=== PATIENT | male | born 1945 | race Caucasian/White ===

== ENCOUNTER 2016-12-26 12:50 | Inpatient (IN) | payer MEDICARE, OTHER ==
[~2016-12-26] VITALS: Ht 172.7 cm; Wt 94.8 kg
[2016-12-26 13:01] LABS: GLUCOSE,POINT OF CARE 348 MG/DL (70-110)
[2016-12-26] MEDS ORDERED: HUMLIS7525 SQ ×2 (13:08)
[2016-12-26] MEDS ORDERED: TAMS0.4C32 PO (13:08)
[2016-12-26] MEDS ORDERED: AMLO-511 PO (13:08)
[2016-12-26] MEDS ORDERED: METF500T4 PO (13:08)
[2016-12-26] MEDS ORDERED: ONDANSETRON HCL 4 MG/2 ML VIAL IVP ONE (13:30)
[2016-12-26] MEDS ORDERED: ACETAMINOPHEN 1000 MG/ISO-OSM 100 ML IV ONE (13:30)
[2016-12-26 13:40] LABS: HEMATOCRIT 39.9 % (41-53); HEMOGLOBIN 13.4 g/dL (13.5-17.5); MEAN CORPUSCULAR HEMOGLOBIN 29.7 pg (26.0-34.0); MEAN CORPUSCULAR HGB CONC 33.7 G/dL (31.0-37.0); MEAN CORPUSCULAR VOLUME 88 fL (80-100); PLATELET COUNT (AUTO) 156 K/uL (150-450); RED BLOOD CELL COUNT(AUTO) 4.52 MIL/uL (4.50-5.90); RED CELL DISTRIBUTION WIDTH 13.6 % (11.5-14.5); WHITE BLOOD COUNT (AUTO) 21.5 K/uL (4.5-11.0)
[2016-12-26 13:54] LABS: ANION GAP 17 mmol/L (8-16); CARBON DIOXIDE 21 mmol/L (22-29); CHLORIDE 93 mmol/L (98-107); CREATININE 1.63 mg/dL (0.60-1.30); GLOMERULAR FILTR. RATE CALC 42 mL/min (>60); POTASSIUM 3.7 mmol/L (3.5-5.1); SODIUM SERUM 131 mmol/L (136-145); UREA NITROGEN, BLOOD 30 mg/dL (7-18)
[2016-12-26 13:55] LABS: CALCIUM, TOTAL 8.4 mg/dL (8.8-10.5)
[2016-12-26 14:07] LABS: BAND NEUTROPHILS % (MANUAL) 6 % (1-5); LYMPHOCYTES % (MANUAL) 3 % (22-44); TOTAL CELLS COUNTED 100
[2016-12-26 14:12] LABS: B-TYPE NATRIURETIC PEPTIDE 591 pg/mL (0-100)
[2016-12-26 14:17] LABS: ALANINE AMINOTRANSFERASE 26 U/L (12-78); ALBUMIN 2.9 g/dL (3.4-5.0); ASPARTATE AMINOTRANSFERASE 25 U/L (15-37); BILIRUBIN,TOTAL 0.8 mg/dL (0.1-1.0); CREATINE KINASE MB 2.9 ng/mL (0-5); CREATINE KINASE, TOTAL 610 U/L (39-308); TOTAL PROTEIN, SERUM 7.6 g/dL (6.4-8.2)
[2016-12-26] MEDS ORDERED: FUROSEMIDE 40 MG/4 ML VIAL IVP ONE (14:30)
[2016-12-26 14:45] LABS: GLUCOSE, URINE (UA) >=1000 mg/dL (NEGATIVE); KETONES,URINE TRACE mg/dL (NEGATIVE); LEUKOCYTE ESTERASE ,URINE NEGATIVE (NEGATIVE); PH,URINE 5.5 (5.0-8.0); PROTEIN,URINE SEE CONFIRM (NEGATIVE)
[2016-12-26 14:49] LABS: OCCULT BLOOD,URINE SMALL (NEGATIVE)
[2016-12-26 14:50] LABS: ADD UA MICROSCOPIC YES; APPEARANCE,URINE HAZY (CLEAR); SULFOSALICYLIC ACID,URINE 1+ (Negative); WBC,URINE 0-2 /HPF (0-5)
[2016-12-26 15:42] LABS: GLUCOSE COMMENT 1 Doctor Notified; GLUCOSE,POINT OF CARE 355 MG/DL (70-110)
[2016-12-26] MEDS ORDERED: INSULIN REGULAR, HUMAN 100 UNITS/ML IVP ONE (16:00)
[2016-12-26] MEDS ORDERED: ACETAMINOPHEN 325 MG TABLET PO PRN (16:15)
[2016-12-26 16:47] LABS: GLUCOSE,POINT OF CARE 348 MG/DL (70-110)
[2016-12-26 17:13] VITALS: BP 153/70
[2016-12-26] MEDS ORDERED: ZOLPIDEM TARTRATE 10 MG TABLET PO PRN (18:30)
[2016-12-26] MEDS ORDERED: DEXTROSE 50%-WATER 25 GM/50 ML SYRINGE IVP PRN (18:30)
[2016-12-26] MEDS ORDERED: ONDANSETRON HCL 4 MG/2 ML VIAL IVP PRN (18:30)
[2016-12-26] MEDS ORDERED: ALBUTEROL SULFATE 2.5 MG/0.5 ML NEB SOLUTION NEB PRN (18:30)
[2016-12-26] MEDS: INSULIN ASPART 100 UNITS/ML SQ PRN ×2 (18:59→20:48)
[2016-12-26 19:30] VITALS: BP 144/52
[2016-12-26] MEDS: ALBUTEROL SULFATE 2.5 MG/0.5 ML NEB SOLUTION NEB SCH (20:00)
[2016-12-26] MEDS: LEVOFLOXACIN 500 MG/D5% WATER 100 ML IV SCH (20:32)
[2016-12-26] MEDS ORDERED: SODIUM CHLORIDE 0.9% 250 ML IV ONE (21:02)
[2016-12-26] MEDS: ACETAMINOPHEN 325 MG TABLET PO PRN (23:26)
[2016-12-26 23:57] VITALS: BP 133/65
[2016-12-27] MEDS: MetroNIDAZOLE 750 MG/NACL 150 ML IV SCH ×2 (00:34→08:24)
[2016-12-27] MEDS: HEPARIN SODIUM,PORCINE 5,000 UNITS/ML VIAL SQ SCH ×2 (00:34→08:25)
[2016-12-27 00:37] LABS: GLUCOSE COMMENT 1 Received Meds; GLUCOSE,POINT OF CARE 342 MG/DL (70-110)
[2016-12-27] MEDS ORDERED: 0.9% SODIUM CHLORIDE 10 ML SYRINGE IVP PRN (01:00)
[2016-12-27] MEDS ORDERED: 0.9% SODIUM CHLORIDE 5 ML NEB SOLUTION NEB ONE ×4 (02:29→19:38)
[2016-12-27] MEDS: ALBUTEROL SULFATE 2.5 MG/0.5 ML NEB SOLUTION NEB SCH ×4 (02:42→20:46)
[2016-12-27] MEDS ORDERED: DIGOXIN 250 MCG/ML 2 ML AMP IVP ONE (04:45)
[2016-12-27 04:56] VITALS: BP 143/62
[2016-12-27] MEDS: INSULIN ASPART 100 UNITS/ML SQ PRN ×3 (05:46→20:33)
[2016-12-27 06:33] LABS: HEMATOCRIT 34.6 % (41-53); HEMOGLOBIN 11.6 g/dL (13.5-17.5); MEAN CORPUSCULAR HEMOGLOBIN 30.1 pg (26.0-34.0); MEAN CORPUSCULAR HGB CONC 33.6 G/dL (31.0-37.0); MEAN CORPUSCULAR VOLUME 90 fL (80-100); PLATELET COUNT (AUTO) 140 K/uL (150-450); RED BLOOD CELL COUNT(AUTO) 3.86 MIL/uL (4.50-5.90); RED CELL DISTRIBUTION WIDTH 13.8 % (11.5-14.5); WHITE BLOOD COUNT (AUTO) 21.4 K/uL (4.5-11.0)
[2016-12-27 06:38] LABS: ALANINE AMINOTRANSFERASE 20 U/L (12-78); ALBUMIN 2.3 g/dL (3.4-5.0); ANION GAP 13 mmol/L (8-16); ASPARTATE AMINOTRANSFERASE 24 U/L (15-37); BILIRUBIN,TOTAL 0.6 mg/dL (0.1-1.0); CARBON DIOXIDE 23 mmol/L (22-29); CHLORIDE 98 mmol/L (98-107); CREATININE 1.51 mg/dL (0.60-1.30); GLOMERULAR FILTR. RATE CALC 46 mL/min (>60); POTASSIUM 3.6 mmol/L (3.5-5.1); SODIUM SERUM 134 mmol/L (136-145); TOTAL PROTEIN, SERUM 6.4 g/dL (6.4-8.2); UREA NITROGEN, BLOOD 37 mg/dL (7-18)
[2016-12-27 06:48] LABS: HEMOGLOBIN A1C 8.9 % (4.5-6.2)
[2016-12-27] MEDS ORDERED: MetFORMIN HCL 500 MG TABLET PO SCH (08:00)
[2016-12-27 08:07] VITALS: BP 134/70
[2016-12-27] MEDS: AmLODIPine BESYLATE 5 MG TABLET PO SCH (08:24)
[2016-12-27] MEDS: MORPHINE SULFATE 2 MG/ML SYRINGE IVP PRN (08:25)
[2016-12-27] MEDS: TAMSULOSIN HCL 0.4 MG CAPSULE PO SCH (08:25)
[2016-12-27] MEDS: PANTOPRAZOLE SODIUM 40 MG/VIAL IVP SCH (08:25)
[2016-12-27 08:30] LABS: BAND NEUTROPHILS % (MANUAL) 18 % (1-5); EOSINOPHILS % (MANUAL) 1 % (1-6); LYMPHOCYTES % (MANUAL) 4 % (22-44); TOTAL CELLS COUNTED 100
[2016-12-27 08:31] LABS: METAMYELOCYTES % 2 % (0-0); WBC MORPHOLOGY TOXIC GRANULATION
[2016-12-27 11:16] VITALS: BP 120/64
[2016-12-27 13:22] LABS: GLUCOSE COMMENT 1 Received Meds; GLUCOSE,POINT OF CARE 331 MG/DL (70-110)
[2016-12-27 13:22] LABS: GLUCOSE COMMENT 1 Received Meds; GLUCOSE,POINT OF CARE 306 MG/DL (70-110)
[2016-12-27] MEDS ORDERED: HEPARIN SODIUM,PORCINE 5,000 UNITS/ML VIAL IVP PRN ×2 (14:15)
[2016-12-27] MEDS ORDERED: HEPARIN SODIUM,PORCINE 5,000 UNITS/ML VIAL IVP ONE (14:15)
[2016-12-27] MEDS ORDERED: VANCOMYCIN HCL 1.5 GM in DEXTROSE 5%-WATER 250 ML IV ONE (15:00)
[2016-12-27 15:16] LABS: HEMATOCRIT 35.4 % (41-53); HEMOGLOBIN 11.8 g/dL (13.5-17.5); MEAN CORPUSCULAR HEMOGLOBIN 29.7 pg (26.0-34.0); MEAN CORPUSCULAR HGB CONC 33.3 G/dL (31.0-37.0); MEAN CORPUSCULAR VOLUME 89 fL (80-100); PLATELET COUNT (AUTO) 143 K/uL (150-450); RED BLOOD CELL COUNT(AUTO) 3.96 MIL/uL (4.50-5.90); RED CELL DISTRIBUTION WIDTH 14.1 % (11.5-14.5); WHITE BLOOD COUNT (AUTO) 18.6 K/uL (4.5-11.0)
[2016-12-27 15:34] LABS: INR 1.1 (0.9-1.1); PROTHROMBIN TIME 11.6 SEC (9.4-11.6)
[2016-12-27 15:41] VITALS: BP 120/54
[2016-12-27] MEDS: DILTIAZEM HCL 125 MG in DEXTROSE 5%-WATER 100 ML IV SCH (16:00)
[2016-12-27 16:22] LABS: BAND NEUTROPHILS % (MANUAL) 8 % (1-5); LYMPHOCYTES % (MANUAL) 5 % (22-44); TOTAL CELLS COUNTED 100; WBC MORPHOLOGY TOXIC GRANULATION
[2016-12-27] MEDS: HEPARIN SODIUM 25000 UNITS/D5W 250 ML IV PRN (17:54)
[2016-12-27] MEDS: GlipiZIDE 5 MG TABLET PO SCH (18:09)
[2016-12-27] MEDS ORDERED: INSULIN ASPART 100 UNITS/ML SQ ONE (18:15)
[2016-12-27 20:00] VITALS: BP 132/66
[2016-12-27] MEDS: LEVOFLOXACIN 500 MG/D5% WATER 100 ML IV SCH (20:30)
[2016-12-27] MEDS ORDERED: INSULIN DETEMIR 100 UNITS/ML SQ SCH (21:00)
[2016-12-27 23:21] LABS: GLUCOSE COMMENT 1 Received Meds; GLUCOSE,POINT OF CARE 447 MG/DL (70-110)
[2016-12-27 23:53] VITALS: BP 133/60
[2016-12-28] MEDS ORDERED: 0.9% SODIUM CHLORIDE 5 ML NEB SOLUTION NEB ONE ×4 (02:32→19:56)
[2016-12-28] MEDS: ALBUTEROL SULFATE 2.5 MG/0.5 ML NEB SOLUTION NEB SCH ×4 (02:42→20:01)
[2016-12-28] MEDS: HEPARIN SODIUM 25000 UNITS/D5W 250 ML IV PRN (03:22)
[2016-12-28 04:21] VITALS: BP 105/57
[2016-12-28 05:08] LABS: EOSINOPHILS % (AUTO) 0 % (1.0-6.0); HEMATOCRIT 24.8 % (41-53); HEMOGLOBIN 8.2 g/dL (13.5-17.5); LYMPHOCYTES # (AUTO) 0.9 K/uL (1.0-4.8); LYMPHOCYTES % (AUTO) 3.8 % (22.0-44.0); MEAN CORPUSCULAR HEMOGLOBIN 29.4 pg (26.0-34.0); MEAN CORPUSCULAR VOLUME 89 fL (80-100); MONOCYTES # (AUTO) 1.6 K/uL (0.1-1.0); MONOCYTES % (AUTO) 7.2 % (2.0-9.0); NEUTROPHILS # (AUTO) 20.2 K/uL (1.8-7.7); PLATELET COUNT (AUTO) 144 K/uL (150-450); RED BLOOD CELL COUNT(AUTO) 2.78 MIL/uL (4.50-5.90); RED CELL DISTRIBUTION WIDTH 14.3 % (11.5-14.5); WHITE BLOOD COUNT (AUTO) 22.7 K/uL (4.5-11.0)
[2016-12-28 05:18] LABS: CALCIUM, TOTAL 7.2 mg/dL (8.8-10.5); CREATININE 2.61 mg/dL (0.60-1.30); POTASSIUM 4.6 mmol/L (3.5-5.1)
[2016-12-28] MEDS: GlipiZIDE 5 MG TABLET PO SCH ×2 (05:23→18:02)
[2016-12-28] MEDS: INSULIN ASPART 100 UNITS/ML SQ PRN ×4 (05:24→21:08)
[2016-12-28 05:33] LABS: PROSTATE SPECIFIC ANTIGEN 86.55 ng/mL (0.00-4.00)
[2016-12-28] MEDS ORDERED: DEXTROSE 50%-WATER 25 GM/50 ML SYRINGE IVP PRN (05:45)
[2016-12-28 07:57] LABS: RBC MORPHOLOGY COMMENT NORMAL RBC MORPH
[2016-12-28 07:59] VITALS: BP 127/58
[2016-12-28] MEDS ORDERED: SODIUM CHLORIDE 0.9% 250 ML IV ONE (08:16)
[2016-12-28] MEDS: VANCOMYCIN HCL 1.5 GM in DEXTROSE 5%-WATER 250 ML IV SCH (08:18)
[2016-12-28] MEDS: AmLODIPine BESYLATE 5 MG TABLET PO SCH (08:18)
[2016-12-28] MEDS: PANTOPRAZOLE SODIUM 40 MG/VIAL IVP SCH (08:18)
[2016-12-28] MEDS: TAMSULOSIN HCL 0.4 MG CAPSULE PO SCH ×2 (08:19→21:07)
[2016-12-28 11:28] VITALS: BP 116/59
[2016-12-28] MEDS: DILTIAZEM HCL 125 MG in DEXTROSE 5%-WATER 100 ML IV SCH (11:56)
[2016-12-28 11:59] LABS: BASOPHILS % (AUTO) 0.1 % (0.0-2.0); EOSINOPHILS % (AUTO) 0 % (1.0-6.0); HEMATOCRIT 23.7 % (41-53); HEMOGLOBIN 7.9 g/dL (13.5-17.5); LYMPHOCYTES # (AUTO) 1.1 K/uL (1.0-4.8); LYMPHOCYTES % (AUTO) 5.4 % (22.0-44.0); MEAN CORPUSCULAR HEMOGLOBIN 30.2 pg (26.0-34.0); MEAN CORPUSCULAR HGB CONC 33.5 G/dL (31.0-37.0); MEAN CORPUSCULAR VOLUME 90 fL (80-100); MONOCYTES # (AUTO) 1.3 K/uL (0.1-1.0); MONOCYTES % (AUTO) 6.2 % (2.0-9.0); NEUTROPHILS # (AUTO) 18.2 K/uL (1.8-7.7); PLATELET COUNT (AUTO) 130 K/uL (150-450); RED BLOOD CELL COUNT(AUTO) 2.63 MIL/uL (4.50-5.90); RED CELL DISTRIBUTION WIDTH 13.9 % (11.5-14.5); WHITE BLOOD COUNT (AUTO) 20.6 K/uL (4.5-11.0)
[2016-12-28] MEDS: INSULIN DETEMIR 100 UNITS/ML SQ SCH ×2 (12:03→21:08)
[2016-12-28 12:05] LABS: NEUTROPHILS % (AUTO) 88.3 % (40.0-70.0)
[2016-12-28] MEDS: PANTOPRAZOLE SODIUM 80 MG in SODIUM CHLORIDE 0.9% 500 ML IV SCH ×2 (15:04→22:17)
[2016-12-28 16:08] VITALS: BP 114/62
[2016-12-28] MEDS: OCTREOTIDE ACETATE 500 MCG in DEXTROSE 5%-WATER 97.5 ML IV SCH (17:59)
[2016-12-28] MEDS: SODIUM CHLORIDE 0.9% 1,000 ML IV SCH (18:02)
[2016-12-28 19:23] VITALS: BP 128/64
[2016-12-28] MEDS: LEVOFLOXACIN 500 MG/D5% WATER 100 ML IV SCH (20:53)
[2016-12-28 23:20] VITALS: BP 117/62
[2016-12-28] MEDS: ACETAMINOPHEN 325 MG TABLET PO PRN (23:31)
[2016-12-29] VITALS (17 sets, daily range): BP systolic 96–150; BP diastolic 50–90
[2016-12-29] MEDS ORDERED: PROPOFOL 1% 20 ML VIAL IVP ONE (00:32)
[2016-12-29] MEDS: OCTREOTIDE ACETATE 500 MCG in DEXTROSE 5%-WATER 97.5 ML IV SCH (02:10)
[2016-12-29] MEDS ORDERED: 0.9% SODIUM CHLORIDE 5 ML NEB SOLUTION NEB ONE ×4 (02:20→20:14)
[2016-12-29 02:21] LABS: GLUCOSE COMMENT 1 Doctor Notified; GLUCOSE,POINT OF CARE 405 MG/DL (70-110)
[2016-12-29] MEDS: ALBUTEROL SULFATE 2.5 MG/0.5 ML NEB SOLUTION NEB SCH ×4 (02:28→20:18)
[2016-12-29] MEDS: SODIUM CHLORIDE 0.9% 1,000 ML IV SCH ×2 (03:48→16:43)
[2016-12-29] MEDS: DILTIAZEM HCL 125 MG in DEXTROSE 5%-WATER 100 ML IV SCH (03:52)
[2016-12-29] MEDS ORDERED: SODIUM CHLORIDE 0.9% 1,000 ML IV ONE ×2 (06:14→06:15)
[2016-12-29 07:30] LABS: ORIG DRAW (USER) MSIMS
[2016-12-29 07:32] LABS: EOSINOPHILS % (AUTO) 0.2 % (1.0-6.0); HEMATOCRIT 21.9 % (41-53); HEMOGLOBIN 7.3 g/dL (13.5-17.5); LYMPHOCYTES # (AUTO) 1.1 K/uL (1.0-4.8); LYMPHOCYTES % (AUTO) 5.6 % (22.0-44.0); MEAN CORPUSCULAR HEMOGLOBIN 29.7 pg (26.0-34.0); MEAN CORPUSCULAR HGB CONC 33.3 G/dL (31.0-37.0); MEAN CORPUSCULAR VOLUME 89 fL (80-100); MONOCYTES # (AUTO) 1.6 K/uL (0.1-1.0); NEUTROPHILS # (AUTO) 17.5 K/uL (1.8-7.7); PLATELET COUNT (AUTO) 144 K/uL (150-450); RED BLOOD CELL COUNT(AUTO) 2.45 MIL/uL (4.50-5.90); RED CELL DISTRIBUTION WIDTH 14.4 % (11.5-14.5); WHITE BLOOD COUNT (AUTO) 20.4 K/uL (4.5-11.0)
[2016-12-29 07:32] LABS: CALCIUM, TOTAL 7.1 mg/dL (8.8-10.5); CREATININE 1.44 mg/dL (0.60-1.30); MAGNESIUM 2.4 mg/dL (1.80-2.40); PHOSPHORUS 3.3 mg/dL (2.5-4.9); POTASSIUM 4.1 mmol/L (3.5-5.1)
[2016-12-29 07:38] LABS: NEUTROPHILS % (AUTO) 86.2 % (40.0-70.0)
[2016-12-29] MEDS: GlipiZIDE 5 MG TABLET PO SCH ×2 (07:45→17:30)
[2016-12-29] MEDS: INSULIN DETEMIR 100 UNITS/ML SQ SCH ×2 (09:00→20:53)
[2016-12-29] MEDS: AmLODIPine BESYLATE 5 MG TABLET PO SCH (09:16)
[2016-12-29] MEDS: TAMSULOSIN HCL 0.4 MG CAPSULE PO SCH ×2 (09:17→20:52)
[2016-12-29] MEDS: SUCRALFATE 1 GM/10 ML SUSPENSION UDCUP PO SCH ×4 (09:17→20:51)
[2016-12-29] MEDS: VANCOMYCIN HCL 1.5 GM in DEXTROSE 5%-WATER 250 ML IV SCH (09:19)
[2016-12-29] MEDS: PANTOPRAZOLE SODIUM 80 MG in SODIUM CHLORIDE 0.9% 500 ML IV SCH ×2 (09:19→18:52)
[2016-12-29] MEDS: MORPHINE SULFATE 2 MG/ML SYRINGE IVP PRN (12:10)
[2016-12-29] MEDS: INSULIN ASPART 100 UNITS/ML SQ PRN ×3 (12:11→20:56)
[2016-12-29] MEDS: CLINDAMYCIN 300 MG/D5% WATER 50 ML IV SCH ×2 (16:43→22:06)
[2016-12-29] MEDS ORDERED: DEXTROSE 50%-WATER 25 GM/50 ML SYRINGE IVP PRN (18:00)
[2016-12-29] MEDS ORDERED: SODIUM CHLORIDE 0.9% 500 ML IV ONE (18:11)
[2016-12-29] MEDS: VANCOMYCIN HCL 1 GM/D5% WATER 200 ML IV SCH (20:20)
[2016-12-29] MEDS ORDERED: METOPROLOL TARTRATE 25 MG TABLET PO SCH (21:00)
[2016-12-29] MEDS ORDERED: SODIUM CHLORIDE 0.9% 250 ML IV ONE (21:44)
[2016-12-29] MEDS: LEVOFLOXACIN 500 MG/D5% WATER 100 ML IV SCH (22:07)
[2016-12-30] MEDS ORDERED: LIDOCAINE HCL/PF 2% 5 ML VIAL IM ONE (00:48)
[2016-12-30] MEDS ORDERED: FentaNYL CITRATE-PF 100 MCG/2 ML VIAL IVP ONE (00:48)
[2016-12-30] MEDS ORDERED: MORPHINE SULFATE/PF 0.5 MG/ML 10 ML AMP IVP ONE (00:48)
[2016-12-30] MEDS ORDERED: ONDANSETRON HCL 4 MG/2 ML VIAL IVP ONE (00:48)
[2016-12-30] MEDS ORDERED: PROPOFOL 1% 20 ML VIAL IVP ONE (00:48)
[2016-12-30] MEDS ORDERED: MORPHINE SULFATE 4 MG/ML SYRINGE IVP ONE (00:48)
[2016-12-30] MEDS ORDERED: SUCCINYLCHOLINE CHLORIDE 20 MG/ML 10 ML VIAL IVP ONE (00:48)
[2016-12-30] MEDS ORDERED: METOCLOPRAMIDE HCL 5 MG/ML 2 ML VIAL IVP ONE (00:48)
[2016-12-30] MEDS ORDERED: 0.9% SODIUM CHLORIDE 5 ML NEB SOLUTION NEB ONE ×3 (01:33→18:56)
[2016-12-30] MEDS: ALBUTEROL SULFATE 2.5 MG/0.5 ML NEB SOLUTION NEB SCH ×4 (01:33→19:27)
[2016-12-30] MEDS: PANTOPRAZOLE SODIUM 80 MG in SODIUM CHLORIDE 0.9% 500 ML IV SCH ×2 (01:52→17:22)
[2016-12-30] MEDS: CLINDAMYCIN 300 MG/D5% WATER 50 ML IV SCH ×4 (01:53→21:00)
[2016-12-30] MEDS: SODIUM CHLORIDE 0.9% 1,000 ML IV SCH ×3 (01:53→22:11)
[2016-12-30 04:00] VITALS: BP 144/70
[2016-12-30] MEDS: GlipiZIDE 5 MG TABLET PO SCH ×3 (05:53→17:22)
[2016-12-30] MEDS: INSULIN ASPART 100 UNITS/ML SQ PRN ×2 (05:54→17:25)
[2016-12-30 07:33] LABS: BASOPHILS % (AUTO) 0.3 % (0.0-2.0); EOSINOPHILS % (AUTO) 0.5 % (1.0-6.0); HEMATOCRIT 26.9 % (41-53); MEAN CORPUSCULAR HEMOGLOBIN 29.7 pg (26.0-34.0); MEAN CORPUSCULAR HGB CONC 33.6 G/dL (31.0-37.0); MEAN CORPUSCULAR VOLUME 88 fL (80-100); MONOCYTES # (AUTO) 1.6 K/uL (0.1-1.0); PLATELET COUNT (AUTO) 164 K/uL (150-450); RED BLOOD CELL COUNT(AUTO) 3.05 MIL/uL (4.50-5.90); RED CELL DISTRIBUTION WIDTH 14.2 % (11.5-14.5); WHITE BLOOD COUNT (AUTO) 25.8 K/uL (4.5-11.0)
[2016-12-30 07:36] LABS: NEUTROPHILS % (AUTO) 89.2 % (40.0-70.0)
[2016-12-30 07:45] VITALS: BP 156/85
[2016-12-30 07:47] LABS: ANION GAP 11 mmol/L (8-16); CALCIUM, TOTAL 7.1 mg/dL (8.8-10.5); CARBON DIOXIDE 21 mmol/L (22-29); CHLORIDE 103 mmol/L (98-107); CREATININE 1.17 mg/dL (0.60-1.30); GLOMERULAR FILTR. RATE CALC > 60 mL/min (>60); PHOSPHORUS 2.4 mg/dL (2.5-4.9); POTASSIUM 4.3 mmol/L (3.5-5.1); SODIUM SERUM 135 mmol/L (136-145); UREA NITROGEN, BLOOD 30 mg/dL (7-18)
[2016-12-30 08:02] LABS: GLUCOSE COMMENT 1 FASTING; GLUCOSE,POINT OF CARE 348 MG/DL (70-110)
[2016-12-30 08:02] LABS: GLUCOSE COMMENT 1 FASTING; GLUCOSE,POINT OF CARE 385 MG/DL (70-110)
[2016-12-30] MEDS ORDERED: BACITRACIN 50,000 UNITS/VIAL ONE (08:02)
[2016-12-30] MEDS ORDERED: BUPIVACAINE HCL/PF 0.25% 30 ML VIAL ONE (08:02)
[2016-12-30] MEDS ORDERED: SODIUM CL IRRIG SOLN BAG 3,000 ML IRRIG ONE (08:02)
[2016-12-30] MEDS ORDERED: SODIUM CHLORIDE 0.9% 10 ML ONE (08:02)
[2016-12-30] MEDS ORDERED: LIDOCAINE HCL/PF 1% 30 ML VIAL ONE (08:02)
[2016-12-30] MEDS ORDERED: SODIUM CHLORIDE 0.9% 1,000 ML IV ONE (08:28)
[2016-12-30] MEDS: INSULIN DETEMIR 100 UNITS/ML SQ SCH ×2 (08:42→22:16)
[2016-12-30] MEDS ORDERED: FentaNYL CITRATE-PF 100 MCG/2 ML VIAL IVP PRN (08:45)
[2016-12-30] MEDS ORDERED: HYDROmorphone 2 MG/ML SYRINGE IVP PRN (08:45)
[2016-12-30] MEDS ORDERED: MEPERIDINE-PF 25 MG/ML SYRINGE IVP PRN (08:45)
[2016-12-30] MEDS ORDERED: OXYGEN THERAPY IH SCH (08:45)
[2016-12-30] MEDS: VANCOMYCIN HCL 1 GM/D5% WATER 200 ML IV SCH ×2 (08:50→21:45)
[2016-12-30] MEDS: METOPROLOL TARTRATE 25 MG TABLET PO SCH ×2 (09:00→22:12)
[2016-12-30] MEDS: AmLODIPine BESYLATE 5 MG TABLET PO SCH (09:00)
[2016-12-30] MEDS: TAMSULOSIN HCL 0.4 MG CAPSULE PO SCH ×2 (09:00→22:12)
[2016-12-30] MEDS: PIPERACILLIN/TAZO 3.375 GM/D5W 50 ML IV SCH ×2 (11:08→19:30)
[2016-12-30 13:15] VITALS: BP 133/72
[2016-12-30] MEDS ORDERED: SODIUM PHOS,M-BASIC-D-BASIC 20 MMOL in DEXTROSE 5%-WATER 150 ML IV ONE (13:30)
[2016-12-30 16:00] VITALS: BP 127/73
[2016-12-30] MEDS ORDERED: SODIUM CHLORIDE 0.9% 250 ML IV ONE (17:21)
[2016-12-30 20:00] VITALS: BP 141/74
[2016-12-30 23:57] LABS: GLUCOSE COMMENT 1 Received Meds; GLUCOSE,POINT OF CARE 351 MG/DL (70-110)
[2016-12-30 23:57] LABS: GLUCOSE,POINT OF CARE 316 MG/DL (70-110)
[2016-12-31] VITALS (7 sets, daily range): BP systolic 92–145; BP diastolic 59–78
[2016-12-31] MEDS: INSULIN ASPART 100 UNITS/ML SQ PRN ×5 (01:56→21:07)
[2016-12-31] MEDS: PIPERACILLIN/TAZO 3.375 GM/D5W 50 ML IV SCH ×4 (02:00→18:26)
[2016-12-31] MEDS ORDERED: 0.9% SODIUM CHLORIDE 5 ML NEB SOLUTION NEB ONE ×4 (02:10→20:01)
[2016-12-31] MEDS: ALBUTEROL SULFATE 2.5 MG/0.5 ML NEB SOLUTION NEB SCH ×4 (02:22→20:06)
[2016-12-31 03:22] LABS: GLUCOSE,POINT OF CARE 350 MG/DL (70-110)
[2016-12-31] MEDS: PANTOPRAZOLE SODIUM 80 MG in SODIUM CHLORIDE 0.9% 500 ML IV SCH ×3 (03:44→23:53)
[2016-12-31] MEDS: CLINDAMYCIN 300 MG/D5% WATER 50 ML IV SCH ×3 (03:45→16:38)
[2016-12-31] MEDS ORDERED: MIDAZOLAM HCL 2 MG/2 ML VIAL IVP ONE (05:13)
[2016-12-31] MEDS ORDERED: HYDROmorphone 2 MG/ML SYRINGE IVP ONE (05:13)
[2016-12-31] MEDS ORDERED: FentaNYL CITRATE-PF 100 MCG/2 ML VIAL IVP ONE (05:13)
[2016-12-31 05:34] LABS: ANION GAP 8 mmol/L (8-16); CALCIUM, TOTAL 6.8 mg/dL (8.8-10.5); CARBON DIOXIDE 23 mmol/L (22-29); CHLORIDE 104 mmol/L (98-107); GLOMERULAR FILTR. RATE CALC > 60 mL/min (>60); POTASSIUM 4.2 mmol/L (3.5-5.1); SODIUM SERUM 135 mmol/L (136-145); UREA NITROGEN, BLOOD 17 mg/dL (7-18)
[2016-12-31] MEDS: GlipiZIDE 5 MG TABLET PO SCH ×2 (06:30→18:26)
[2016-12-31 07:02] LABS: GLUCOSE,POINT OF CARE 263 MG/DL (70-110)
[2016-12-31] MEDS ORDERED: SODIUM CHLORIDE 0.9% 10 ML ONE (07:45)
[2016-12-31 07:48] LABS: BASOPHILS % (AUTO) 0.1 % (0.0-2.0); EOSINOPHILS % (AUTO) 0.4 % (1.0-6.0); HEMATOCRIT 23.6 % (41-53); HEMOGLOBIN 7.8 g/dL (13.5-17.5); LYMPHOCYTES # (AUTO) 1.7 K/uL (1.0-4.8); LYMPHOCYTES % (AUTO) 5.7 % (22.0-44.0); MEAN CORPUSCULAR HEMOGLOBIN 29.5 pg (26.0-34.0); MEAN CORPUSCULAR VOLUME 90 fL (80-100); MONOCYTES # (AUTO) 1.6 K/uL (0.1-1.0); MONOCYTES % (AUTO) 5.3 % (2.0-9.0); NEUTROPHILS # (AUTO) 25.9 K/uL (1.8-7.7); NEUTROPHILS % (AUTO) 88.5 % (40.0-70.0); PLATELET COUNT (AUTO) 192 K/uL (150-450); RED BLOOD CELL COUNT(AUTO) 2.64 MIL/uL (4.50-5.90); RED CELL DISTRIBUTION WIDTH 14.7 % (11.5-14.5); WHITE BLOOD COUNT (AUTO) 29.3 K/uL (4.5-11.0)
[2016-12-31] MEDS ORDERED: MEPERIDINE-PF 25 MG/ML SYRINGE IVP PRN (08:30)
[2016-12-31] MEDS ORDERED: HYDROmorphone 2 MG/ML SYRINGE IVP PRN (08:30)
[2016-12-31] MEDS ORDERED: FentaNYL CITRATE-PF 100 MCG/2 ML VIAL IVP PRN (08:30)
[2016-12-31] MEDS ORDERED: OXYGEN THERAPY IH SCH (08:43)
[2016-12-31 09:21] LABS: BASOPHILS % (AUTO) 0.1 % (0.0-2.0); HEMOGLOBIN 7.6 g/dL (13.5-17.5); LYMPHOCYTES # (AUTO) 1.2 K/uL (1.0-4.8); MEAN CORPUSCULAR HEMOGLOBIN 29.3 pg (26.0-34.0); MEAN CORPUSCULAR VOLUME 89 fL (80-100); MONOCYTES # (AUTO) 1.3 K/uL (0.1-1.0); MONOCYTES % (AUTO) 4.2 % (2.0-9.0); NEUTROPHILS # (AUTO) 27.4 K/uL (1.8-7.7); PLATELET COUNT (AUTO) 201 K/uL (150-450); RED BLOOD CELL COUNT(AUTO) 2.59 MIL/uL (4.50-5.90); RED CELL DISTRIBUTION WIDTH 14.3 % (11.5-14.5)
[2016-12-31 09:25] LABS: NEUTROPHILS % (AUTO) 90.7 % (40.0-70.0); WHITE BLOOD COUNT (AUTO) 30.2 K/uL (4.5-11.0)
[2016-12-31] MEDS: SODIUM CHLORIDE 0.9% 1,000 ML IV SCH ×2 (09:58→16:40)
[2016-12-31] MEDS: VANCOMYCIN HCL 1 GM/D5% WATER 200 ML IV SCH ×3 (09:58→23:53)
[2016-12-31] MEDS: TAMSULOSIN HCL 0.4 MG CAPSULE PO SCH ×2 (09:59→20:44)
[2016-12-31] MEDS: AmLODIPine BESYLATE 5 MG TABLET PO SCH (09:59)
[2016-12-31] MEDS: METOPROLOL TARTRATE 25 MG TABLET PO SCH ×2 (09:59→20:44)
[2016-12-31] MEDS: INSULIN DETEMIR 100 UNITS/ML SQ SCH ×2 (10:00→21:06)
[2016-12-31 17:37] LABS: GLUCOSE COMMENT 1 Received Meds; GLUCOSE,POINT OF CARE 231 MG/DL (70-110)
[2016-12-31] MEDS: OxyCODONE HCL/ACETAMINOPHEN 5-325 MG TABLET PO PRN (18:26)
[2016-12-31] MEDS: CLINDAMYCIN 900 MG/D5% WATER 50 ML IV SCH (21:11)
[2016-12-31] MEDS ORDERED: LEVOFLOXACIN 250 MG TABLET PO ONE (21:30)
[2017-01-01] VITALS (13 sets, daily range): BP systolic 98–136; BP diastolic 43–81
[2017-01-01] MEDS: PIPERACILLIN/TAZO 3.375 GM/D5W 50 ML IV SCH ×4 (00:17→17:47)
[2017-01-01] MEDS ORDERED: 0.9% SODIUM CHLORIDE 5 ML NEB SOLUTION NEB ONE ×4 (02:13→19:06)
[2017-01-01] MEDS: ALBUTEROL SULFATE 2.5 MG/0.5 ML NEB SOLUTION NEB SCH ×4 (02:16→19:22)
[2017-01-01] MEDS: CLINDAMYCIN 900 MG/D5% WATER 50 ML IV SCH ×3 (05:29→20:16)
[2017-01-01] MEDS: SODIUM CHLORIDE 0.9% 1,000 ML IV SCH (05:31)
[2017-01-01] MEDS: GlipiZIDE 5 MG TABLET PO SCH ×2 (05:39→17:47)
[2017-01-01] MEDS: INSULIN ASPART 100 UNITS/ML SQ PRN ×4 (05:39→20:17)
[2017-01-01] MEDS: VANCOMYCIN HCL 1 GM/D5% WATER 200 ML IV SCH ×2 (07:30→16:09)
[2017-01-01 07:32] LABS: MEAN CORPUSCULAR HEMOGLOBIN 29.9 pg (26.0-34.0); MEAN CORPUSCULAR VOLUME 90 fL (80-100); PLATELET COUNT (AUTO) 206 K/uL (150-450); RED CELL DISTRIBUTION WIDTH 14.2 % (11.5-14.5); WHITE BLOOD COUNT (AUTO) 28.1 K/uL (4.5-11.0)
[2017-01-01] MEDS: OxyCODONE HCL/ACETAMINOPHEN 5-325 MG TABLET PO PRN ×2 (07:43→20:18)
[2017-01-01 07:55] LABS: ANION GAP 10 mmol/L (8-16); CALCIUM, TOTAL 6.6 mg/dL (8.8-10.5); CARBON DIOXIDE 20 mmol/L (22-29); CHLORIDE 101 mmol/L (98-107); GLOMERULAR FILTR. RATE CALC > 60 mL/min (>60); POTASSIUM 3.9 mmol/L (3.5-5.1); SODIUM SERUM 131 mmol/L (136-145); UREA NITROGEN, BLOOD 20 mg/dL (7-18)
[2017-01-01 08:02] LABS: GLUCOSE COMMENT 1 Received Meds; GLUCOSE,POINT OF CARE 268 MG/DL (70-110)
[2017-01-01 08:07] LABS: GLUCOSE COMMENT 1 Received Meds; GLUCOSE,POINT OF CARE 361 MG/DL (70-110)
[2017-01-01 08:07] LABS: GLUCOSE COMMENT 1 Received Meds; GLUCOSE,POINT OF CARE 323 MG/DL (70-110)
[2017-01-01 08:11] LABS: HEMATOCRIT 20.8 % (41-53); HEMOGLOBIN 6.9 g/dL (13.5-17.5)
[2017-01-01] MEDS ORDERED: LEVOFLOXACIN 250 MG TABLET PO SCH (09:00)
[2017-01-01 09:06] LABS: BAND NEUTROPHILS % (MANUAL) 7 % (1-5); LYMPHOCYTES % (MANUAL) 5 % (22-44); METAMYELOCYTES % 3 % (0-0); MYELOCYTES % 3 % (0-0); TOTAL CELLS COUNTED 100
[2017-01-01] MEDS: INSULIN DETEMIR 100 UNITS/ML SQ SCH ×2 (09:07→20:17)
[2017-01-01] MEDS: TAMSULOSIN HCL 0.4 MG CAPSULE PO SCH ×2 (09:09→20:18)
[2017-01-01] MEDS: METOPROLOL TARTRATE 25 MG TABLET PO SCH ×2 (09:09→20:18)
[2017-01-01] MEDS: AmLODIPine BESYLATE 5 MG TABLET PO SCH (09:09)
[2017-01-01] MEDS: PANTOPRAZOLE SODIUM 80 MG in SODIUM CHLORIDE 0.9% 500 ML IV SCH ×2 (10:49→18:21)
[2017-01-01] MEDS: MORPHINE SULFATE 2 MG/ML SYRINGE IVP PRN (10:49)
[2017-01-01] MEDS ORDERED: SODIUM CHLORIDE 0.9% 250 ML IV ONE (13:03)
[2017-01-02] MEDS: ALBUTEROL SULFATE 2.5 MG/0.5 ML NEB SOLUTION NEB SCH ×4 (02:00→20:03)
[2017-01-02] MEDS ORDERED: SODIUM CHLORIDE 0.9% IRRIG BTL 1,000 ML IRRIG ONE ×2 (03:34→09:59)
[2017-01-02 04:00] VITALS: BP 128/82
[2017-01-02] MEDS: PIPERACILLIN/TAZO 3.375 GM/D5W 50 ML IV SCH ×4 (04:32→18:00)
[2017-01-02] MEDS: CLINDAMYCIN 900 MG/D5% WATER 50 ML IV SCH ×3 (04:32→21:47)
[2017-01-02] MEDS: VANCOMYCIN HCL 1 GM/D5% WATER 200 ML IV SCH ×3 (04:33→08:10)
[2017-01-02] MEDS: PANTOPRAZOLE SODIUM 80 MG in SODIUM CHLORIDE 0.9% 500 ML IV SCH (04:33)
[2017-01-02 05:37] LABS: GLUCOSE COMMENT 1 Received Meds; GLUCOSE,POINT OF CARE 293 MG/DL (70-110)
[2017-01-02 05:37] LABS: GLUCOSE COMMENT 1 Received Meds; GLUCOSE,POINT OF CARE 341 MG/DL (70-110)
[2017-01-02 05:37] LABS: GLUCOSE COMMENT 1 Received Meds; GLUCOSE,POINT OF CARE 311 MG/DL (70-110)
[2017-01-02] MEDS: GlipiZIDE 5 MG TABLET PO SCH ×2 (06:03→18:00)
[2017-01-02] MEDS: INSULIN ASPART 100 UNITS/ML SQ PRN ×3 (06:09→17:56)
[2017-01-02 07:12] VITALS: BP_SYST 102; BP_SYST 145; BP_DIAS 60; BP_DIAS 75
[2017-01-02] MEDS ORDERED: 0.9% SODIUM CHLORIDE 5 ML NEB SOLUTION NEB ONE ×2 (07:30→19:53)
[2017-01-02 07:51] LABS: HEMATOCRIT 25.9 % (41-53); HEMOGLOBIN 8.6 g/dL (13.5-17.5); MEAN CORPUSCULAR HEMOGLOBIN 29.4 pg (26.0-34.0); MEAN CORPUSCULAR VOLUME 89 fL (80-100); PLATELET COUNT (AUTO) 260 K/uL (150-450); RED BLOOD CELL COUNT(AUTO) 2.91 MIL/uL (4.50-5.90); RED CELL DISTRIBUTION WIDTH 14.6 % (11.5-14.5)
[2017-01-02 08:05] LABS: WHITE BLOOD COUNT (AUTO) 32.5 K/uL (4.5-11.0)
[2017-01-02] MEDS: INSULIN DETEMIR 100 UNITS/ML SQ SCH ×2 (08:10→20:36)
[2017-01-02] MEDS: TAMSULOSIN HCL 0.4 MG CAPSULE PO SCH ×2 (08:11→21:47)
[2017-01-02] MEDS: METOPROLOL TARTRATE 25 MG TABLET PO SCH ×2 (08:11→21:47)
[2017-01-02] MEDS: AmLODIPine BESYLATE 5 MG TABLET PO SCH (08:11)
[2017-01-02] MEDS: OxyCODONE HCL/ACETAMINOPHEN 5-325 MG TABLET PO PRN (08:17)
[2017-01-02 08:20] LABS: ANION GAP 9 mmol/L (8-16); CALCIUM, TOTAL 6.9 mg/dL (8.8-10.5); CARBON DIOXIDE 22 mmol/L (22-29); CHLORIDE 103 mmol/L (98-107); CREATININE 1.05 mg/dL (0.60-1.30); GLOMERULAR FILTR. RATE CALC > 60 mL/min (>60); PHOSPHORUS 2.4 mg/dL (2.5-4.9); POTASSIUM 3.8 mmol/L (3.5-5.1); SODIUM SERUM 134 mmol/L (136-145); UREA NITROGEN, BLOOD 13 mg/dL (7-18)
[2017-01-02 08:37] LABS: BAND NEUTROPHILS % (MANUAL) 1 % (1-5); LYMPHOCYTES % (MANUAL) 6 % (22-44); METAMYELOCYTES % 1 % (0-0); MYELOCYTES % 3 % (0-0); TOTAL CELLS COUNTED 100; WBC MORPHOLOGY TOXIC GRANULATION
[2017-01-02] MEDS ORDERED: SODIUM PHOS,M-BASIC-D-BASIC 20 MMOL in DEXTROSE 5%-WATER 150 ML IV ONE (10:00)
[2017-01-02] MEDS: PANTOPRAZOLE SODIUM 40 MG/VIAL IVP SCH ×2 (10:50→21:47)
[2017-01-02 11:36] VITALS: BP 122/78
[2017-01-02] MEDS ORDERED: BARIUM SULFATE 0.1% SUSPENSION 450 ML BOTTLE ONE (18:52)
[2017-01-02 19:46] VITALS: BP 100/62
[2017-01-02 19:57] LABS: GLUCOSE COMMENT 1 Received Meds; GLUCOSE,POINT OF CARE 146 MG/DL (70-110)
[2017-01-02 20:12] VITALS: BP 135/74
[2017-01-02] MEDS ORDERED: SODIUM CHLORIDE 0.9% 100 ML ONE (20:32)
[2017-01-02] MEDS ORDERED: IOVERSOL 350 MG/ML 150 ML VIAL ONE (20:32)
[2017-01-02 23:47] VITALS: BP 141/74
[2017-01-03] MEDS: PIPERACILLIN/TAZO 3.375 GM/D5W 50 ML IV SCH ×4 (01:01→20:32)
[2017-01-03] MEDS: DEXTROSE 5%-0.45% SODIUM CHL 1,000 ML IV SCH ×2 (01:01→14:38)
[2017-01-03] MEDS ORDERED: LIDOCAINE HCL/PF 2% 5 ML VIAL IM ONE (01:02)
[2017-01-03] MEDS ORDERED: FentaNYL CITRATE-PF 250 MCG/5 ML VIAL IVP ONE (01:02)
[2017-01-03] MEDS ORDERED: MIDAZOLAM HCL 2 MG/2 ML VIAL IVP ONE (01:02)
[2017-01-03] MEDS ORDERED: PROPOFOL 1% 20 ML VIAL IVP ONE (01:02)
[2017-01-03] MEDS ORDERED: ONDANSETRON HCL 4 MG/2 ML VIAL IVP ONE (01:02)
[2017-01-03] MEDS ORDERED: SUCCINYLCHOLINE CHLORIDE 20 MG/ML 10 ML VIAL IVP ONE (01:02)
[2017-01-03 01:36] LABS: GLUCOSE COMMENT 1 Received Meds; GLUCOSE,POINT OF CARE 160 MG/DL (70-110)
[2017-01-03] MEDS ORDERED: 0.9% SODIUM CHLORIDE 5 ML NEB SOLUTION NEB ONE ×3 (01:52→20:08)
[2017-01-03 02:02] LABS: GLUCOSE COMMENT 1 Received Meds; GLUCOSE,POINT OF CARE 169 MG/DL (70-110)
[2017-01-03] MEDS: ALBUTEROL SULFATE 2.5 MG/0.5 ML NEB SOLUTION NEB SCH ×4 (02:02→20:17)
[2017-01-03 02:07] LABS: GLUCOSE,POINT OF CARE 232 MG/DL (70-110)
[2017-01-03 04:22] VITALS: BP 148/67
[2017-01-03 04:22] LABS: GLUCOSE,POINT OF CARE 316 MG/DL (70-110)
[2017-01-03 04:26] LABS: GLUCOSE,POINT OF CARE 412 MG/DL (70-110)
[2017-01-03 04:26] LABS: GLUCOSE COMMENT 1 Received Meds; GLUCOSE,POINT OF CARE 388 MG/DL (70-110)
[2017-01-03 04:32] LABS: GLUCOSE COMMENT 1 Received Meds; GLUCOSE,POINT OF CARE 230 MG/DL (70-110)
[2017-01-03 04:32] LABS: GLUCOSE COMMENT 1 Received Meds; GLUCOSE,POINT OF CARE 302 MG/DL (70-110)
[2017-01-03 04:32] LABS: GLUCOSE COMMENT 1 Received Meds; GLUCOSE,POINT OF CARE 321 MG/DL (70-110)
[2017-01-03 04:32] LABS: GLUCOSE COMMENT 1 FASTING; GLUCOSE,POINT OF CARE 267 MG/DL (70-110)
[2017-01-03 04:32] LABS: GLUCOSE,POINT OF CARE 367 MG/DL (70-110)
[2017-01-03 04:37] LABS: GLUCOSE COMMENT 1 Received Meds; GLUCOSE,POINT OF CARE 323 MG/DL (70-110)
[2017-01-03] MEDS: CLINDAMYCIN 900 MG/D5% WATER 50 ML IV SCH ×3 (05:50→20:32)
[2017-01-03] MEDS: GlipiZIDE 5 MG TABLET PO SCH ×2 (05:50→17:30)
[2017-01-03 06:58] LABS: BASOPHILS # (AUTO) 0.01 K/uL (0.00-0.20); EOSINOPHILS # (AUTO) 0.14 K/uL (0.00-0.70); EOSINOPHILS % (AUTO) 0.53 % (1.0-6.0); HEMATOCRIT 26.5 % (41-53); LYMPHOCYTES # (AUTO) 1.6 K/uL (1.0-4.8); LYMPHOCYTES % (AUTO) 6.2 % (22.0-44.0); MEAN CORPUSCULAR HEMOGLOBIN 29.9 pg (26.0-34.0); MEAN CORPUSCULAR HGB CONC 33.8 G/dL (31.0-37.0); MEAN CORPUSCULAR VOLUME 88 fL (80-100); MONOCYTES # (AUTO) 1.1 K/uL (0.1-1.0); MONOCYTES % (AUTO) 4.2 % (2.0-9.0); NEUTROPHILS # (AUTO) 23.4 K/uL (1.8-7.7); PLATELET COUNT (AUTO) 270 K/uL (150-450); RED CELL DISTRIBUTION WIDTH 14.8 % (11.5-14.5); WHITE BLOOD COUNT (AUTO) 26.3 K/uL (4.5-11.0)
[2017-01-03 07:03] VITALS: BP 138/81
[2017-01-03 07:13] LABS: ANION GAP 12 mmol/L (8-16); CALCIUM, TOTAL 7.4 mg/dL (8.8-10.5); CARBON DIOXIDE 21 mmol/L (22-29); CHLORIDE 102 mmol/L (98-107); CREATININE 1.11 mg/dL (0.60-1.30); GLOMERULAR FILTR. RATE CALC > 60 mL/min (>60); PHOSPHORUS 2.7 mg/dL (2.5-4.9); POTASSIUM 3.6 mmol/L (3.5-5.1); SODIUM SERUM 135 mmol/L (136-145); UREA NITROGEN, BLOOD 12 mg/dL (7-18)
[2017-01-03 07:31] LABS: GLUCOSE,POINT OF CARE 259 MG/DL (70-110)
[2017-01-03] MEDS: VANCOMYCIN HCL 1 GM/D5% WATER 200 ML IV SCH ×2 (08:40→20:32)
[2017-01-03] MEDS: PANTOPRAZOLE SODIUM 40 MG/VIAL IVP SCH ×2 (08:42→20:33)
[2017-01-03] MEDS: TAMSULOSIN HCL 0.4 MG CAPSULE PO SCH ×2 (08:43→20:33)
[2017-01-03] MEDS: AmLODIPine BESYLATE 5 MG TABLET PO SCH (08:43)
[2017-01-03] MEDS: METOPROLOL TARTRATE 25 MG TABLET PO SCH ×2 (08:43→20:33)
[2017-01-03] MEDS: CHOLECALCIFEROL (VIT D3) 1,000 UNITS TABLET PO SCH (08:44)
[2017-01-03] MEDS: MULTIVITAMINS WITH MINERALS, THERAPEUTIC TABLET PO SCH (08:44)
[2017-01-03] MEDS: INSULIN DETEMIR 100 UNITS/ML SQ SCH ×2 (08:54→21:12)
[2017-01-03 11:04] VITALS: BP 137/74
[2017-01-03] MEDS: INSULIN ASPART 100 UNITS/ML SQ PRN ×2 (13:14→21:13)
[2017-01-03] MEDS ORDERED: RINGERS SOLUTION,LACTATED 1,000 ML IV ONE ×2 (14:16→15:15)
[2017-01-03 15:21] VITALS: BP 117/75
[2017-01-03] MEDS ORDERED: SODIUM CHLORIDE 0.9% 10 ML ONE (17:16)
[2017-01-03] MEDS: BACITRACIN 50,000 UNITS/VIAL ONE ×2 (17:21→17:34)
[2017-01-03 17:57] LABS: GLUCOSE,POINT OF CARE 208 MG/DL (70-110)
[2017-01-03] MEDS ORDERED: BACITRACIN 28.4 GM OINTMENT TP ONE (17:58)
[2017-01-03] MEDS: HYDROmorphone 2 MG/ML SYRINGE IVP PRN ×3 (18:34→18:54)
[2017-01-03] MEDS ORDERED: HYDROmorphone 2 MG/ML SYRINGE ONE (18:35)
[2017-01-03 19:56] VITALS: BP 129/76
[2017-01-03 20:17] LABS: GLUCOSE COMMENT 1 Received Meds; GLUCOSE,POINT OF CARE 263 MG/DL (70-110)
[2017-01-03 20:17] LABS: GLUCOSE,POINT OF CARE 270 MG/DL (70-110)
[2017-01-03 23:22] VITALS: BP 138/71
[2017-01-04] MEDS: PIPERACILLIN/TAZO 3.375 GM/D5W 50 ML IV SCH ×4 (00:26→18:07)
[2017-01-04 01:02] LABS: GLUCOSE COMMENT 1 Received Meds; GLUCOSE,POINT OF CARE 222 MG/DL (70-110)
[2017-01-04] MEDS ORDERED: 0.9% SODIUM CHLORIDE 5 ML NEB SOLUTION NEB ONE ×4 (02:02→19:16)
[2017-01-04] MEDS: ALBUTEROL SULFATE 2.5 MG/0.5 ML NEB SOLUTION NEB SCH ×4 (02:08→19:47)
[2017-01-04] MEDS: DEXTROSE 5%-0.45% SODIUM CHL 1,000 ML IV SCH ×2 (02:45→18:09)
[2017-01-04 05:24] VITALS: BP 132/69
[2017-01-04] MEDS: GlipiZIDE 5 MG TABLET PO SCH ×2 (05:36→18:09)
[2017-01-04 06:06] LABS: BASOPHILS % (AUTO) 0.2 % (0.0-2.0); EOSINOPHILS % (AUTO) 1.1 % (1.0-6.0); HEMATOCRIT 26.9 % (41-53); HEMOGLOBIN 8.8 g/dL (13.5-17.5); LYMPHOCYTES % (AUTO) 4.7 % (22.0-44.0); MEAN CORPUSCULAR HEMOGLOBIN 29.5 pg (26.0-34.0); MEAN CORPUSCULAR HGB CONC 32.8 G/dL (31.0-37.0); MEAN CORPUSCULAR VOLUME 90 fL (80-100); MONOCYTES # (AUTO) 0.8 K/uL (0.1-1.0); MONOCYTES % (AUTO) 3.7 % (2.0-9.0); NEUTROPHILS # (AUTO) 19.5 K/uL (1.8-7.7); PLATELET COUNT (AUTO) 273 K/uL (150-450); RED BLOOD CELL COUNT(AUTO) 2.99 MIL/uL (4.50-5.90); RED CELL DISTRIBUTION WIDTH 14.8 % (11.5-14.5); WHITE BLOOD COUNT (AUTO) 21.6 K/uL (4.5-11.0)
[2017-01-04] MEDS: INSULIN ASPART 100 UNITS/ML SQ PRN ×4 (06:30→20:39)
[2017-01-04 06:50] LABS: NEUTROPHILS % (AUTO) 90.3 % (40.0-70.0)
[2017-01-04 06:58] LABS: ANION GAP 8 mmol/L (8-16); CALCIUM, TOTAL 7.6 mg/dL (8.8-10.5); CARBON DIOXIDE 24 mmol/L (22-29); CHLORIDE 103 mmol/L (98-107); GLOMERULAR FILTR. RATE CALC > 60 mL/min (>60); POTASSIUM 3.5 mmol/L (3.5-5.1); SODIUM SERUM 135 mmol/L (136-145); UREA NITROGEN, BLOOD 9 mg/dL (7-18)
[2017-01-04 07:23] LABS: GLUCOSE COMMENT 1 Received Meds; GLUCOSE,POINT OF CARE 182 MG/DL (70-110)
[2017-01-04 07:30] VITALS: BP 131/77
[2017-01-04] MEDS: MULTIVITAMINS WITH MINERALS, THERAPEUTIC TABLET PO SCH (10:16)
[2017-01-04] MEDS: CHOLECALCIFEROL (VIT D3) 1,000 UNITS TABLET PO SCH (10:16)
[2017-01-04] MEDS: PANTOPRAZOLE SODIUM 40 MG/VIAL IVP SCH ×2 (10:16→20:42)
[2017-01-04] MEDS: METOPROLOL TARTRATE 25 MG TABLET PO SCH (10:16)
[2017-01-04] MEDS: TAMSULOSIN HCL 0.4 MG CAPSULE PO SCH ×2 (10:17→20:42)
[2017-01-04] MEDS: AmLODIPine BESYLATE 5 MG TABLET PO SCH (10:17)
[2017-01-04] MEDS: VANCOMYCIN HCL 1.25 GM in DEXTROSE 5%-WATER 250 ML IV SCH ×2 (10:25→20:45)
[2017-01-04] MEDS: INSULIN DETEMIR 100 UNITS/ML SQ SCH ×2 (10:29→20:42)
[2017-01-04] MEDS: MORPHINE SULFATE 2 MG/ML SYRINGE IVP PRN (10:54)
[2017-01-04 11:36] VITALS: BP 156/95
[2017-01-04] MEDS ORDERED: SODIUM CHLORIDE 0.9% IRRIG BTL 1,000 ML IRRIG ONE (15:33)
[2017-01-04] MEDS: DIGOXIN 250 MCG/ML 2 ML AMP IVP SCH ×2 (15:43→20:48)
[2017-01-04 16:11] VITALS: BP 146/71
[2017-01-04 19:37] VITALS: BP 140/74
[2017-01-04] MEDS: METOPROLOL TARTRATE 50 MG TABLET PO SCH (20:42)
[2017-01-04 23:56] VITALS: BP 138/64
[2017-01-05] VITALS (7 sets, daily range): BP systolic 120–167; BP diastolic 59–88
[2017-01-05] MEDS: PIPERACILLIN/TAZO 3.375 GM/D5W 50 ML IV SCH ×4 (00:59→18:40)
[2017-01-05] MEDS ORDERED: 0.9% SODIUM CHLORIDE 5 ML NEB SOLUTION NEB ONE ×5 (02:00→19:36)
[2017-01-05] MEDS: ALBUTEROL SULFATE 2.5 MG/0.5 ML NEB SOLUTION NEB SCH ×4 (02:04→19:36)
[2017-01-05 04:12] LABS: GLUCOSE COMMENT 1 Received Meds; GLUCOSE,POINT OF CARE 155 MG/DL (70-110)
[2017-01-05 04:16] LABS: GLUCOSE COMMENT 1 Received Meds; GLUCOSE,POINT OF CARE 239 MG/DL (70-110)
[2017-01-05 04:22] LABS: GLUCOSE COMMENT 1 Received Meds; GLUCOSE,POINT OF CARE 243 MG/DL (70-110)
[2017-01-05 04:27] LABS: GLUCOSE COMMENT 1 Received Meds; GLUCOSE,POINT OF CARE 204 MG/DL (70-110)
[2017-01-05] MEDS: DIGOXIN 250 MCG/ML 2 ML AMP IVP SCH ×2 (05:11→10:03)
[2017-01-05] MEDS: GlipiZIDE 5 MG TABLET PO SCH ×2 (06:09→17:30)
[2017-01-05] MEDS: INSULIN ASPART 100 UNITS/ML SQ PRN ×3 (06:10→18:45)
[2017-01-05 07:02] LABS: GLUCOSE COMMENT 1 Received Meds; GLUCOSE,POINT OF CARE 163 MG/DL (70-110)
[2017-01-05 07:24] LABS: ANION GAP 10 mmol/L (8-16); CALCIUM, TOTAL 7.3 mg/dL (8.8-10.5); CARBON DIOXIDE 24 mmol/L (22-29); CHLORIDE 102 mmol/L (98-107); CREATININE 1.02 mg/dL (0.60-1.30); GLOMERULAR FILTR. RATE CALC > 60 mL/min (>60); POTASSIUM 3.4 mmol/L (3.5-5.1); SODIUM SERUM 136 mmol/L (136-145); UREA NITROGEN, BLOOD 9 mg/dL (7-18)
[2017-01-05] MEDS: TAMSULOSIN HCL 0.4 MG CAPSULE PO SCH ×2 (09:00→23:18)
[2017-01-05] MEDS: PANTOPRAZOLE SODIUM 40 MG/VIAL IVP SCH ×2 (09:00→23:18)
[2017-01-05] MEDS: MULTIVITAMINS WITH MINERALS, THERAPEUTIC TABLET PO SCH (09:02)
[2017-01-05] MEDS: METOPROLOL TARTRATE 50 MG TABLET PO SCH ×2 (09:02→23:18)
[2017-01-05] MEDS: CHOLECALCIFEROL (VIT D3) 1,000 UNITS TABLET PO SCH (09:02)
[2017-01-05] MEDS: AmLODIPine BESYLATE 5 MG TABLET PO SCH (09:02)
[2017-01-05] MEDS: VANCOMYCIN HCL 1.25 GM in DEXTROSE 5%-WATER 250 ML IV SCH ×2 (09:03→20:00)
[2017-01-05] MEDS: INSULIN DETEMIR 100 UNITS/ML SQ SCH ×2 (09:29→21:00)
[2017-01-05] MEDS ORDERED: METOCLOPRAMIDE HCL 5 MG/ML 2 ML VIAL IVP ONE (12:00)
[2017-01-05] MEDS ORDERED: ONDANSETRON HCL 4 MG/2 ML VIAL IVP ONE (12:00)
[2017-01-05] MEDS ORDERED: SUCCINYLCHOLINE CHLORIDE 20 MG/ML 10 ML VIAL IVP ONE (12:00)
[2017-01-05] MEDS ORDERED: LIDOCAINE HCL/PF 2% 5 ML VIAL INJ ONE (12:00)
[2017-01-05] MEDS ORDERED: PROPOFOL 1% 20 ML VIAL IVP ONE (12:00)
[2017-01-05] MEDS ORDERED: DEXAMETHASONE SOD PHOS 4 MG/ML VIAL IVP ONE (12:00)
[2017-01-05] MEDS ORDERED: POTASSIUM CHLORIDE 20 MEQ ER TABLET PO PRN (14:30)
[2017-01-05] MEDS ORDERED: POTASSIUM CHL 10 MEQ/WATER 50 ML IV PRN (14:30)
[2017-01-05] MEDS: ACETAMINOPHEN 325 MG TABLET PO PRN (14:51)
[2017-01-05] MEDS: DEXTROSE 5%-0.45% SODIUM CHL 1,000 ML IV SCH ×3 (18:39→23:22)
[2017-01-05 19:13] LABS: BASOPHILS % (AUTO) 0.1 % (0.0-2.0); EOSINOPHILS % (AUTO) 1.3 % (1.0-6.0); HEMATOCRIT 27.3 % (41-53); HEMOGLOBIN 8.8 g/dL (13.5-17.5); LYMPHOCYTES # (AUTO) 1.2 K/uL (1.0-4.8); LYMPHOCYTES % (AUTO) 7.3 % (22.0-44.0); MEAN CORPUSCULAR HEMOGLOBIN 28.8 pg (26.0-34.0); MEAN CORPUSCULAR HGB CONC 32.3 G/dL (31.0-37.0); MEAN CORPUSCULAR VOLUME 89 fL (80-100); MONOCYTES # (AUTO) 0.9 K/uL (0.1-1.0); MONOCYTES % (AUTO) 5.5 % (2.0-9.0); NEUTROPHILS # (AUTO) 13.6 K/uL (1.8-7.7); PLATELET COUNT (AUTO) 254 K/uL (150-450); RED BLOOD CELL COUNT(AUTO) 3.07 MIL/uL (4.50-5.90); RED CELL DISTRIBUTION WIDTH 14.7 % (11.5-14.5); WHITE BLOOD COUNT (AUTO) 15.8 K/uL (4.5-11.0)
[2017-01-05 19:15] LABS: NEUTROPHILS % (AUTO) 85.8 % (40.0-70.0)
[2017-01-05] MEDS ORDERED: FentaNYL CITRATE-PF 100 MCG/2 ML VIAL IVP PRN (19:30)
[2017-01-05] MEDS ORDERED: HYDROmorphone 2 MG/ML SYRINGE IVP PRN (19:30)
[2017-01-05] MEDS ORDERED: MEPERIDINE-PF 25 MG/ML SYRINGE IVP PRN (19:30)
[2017-01-05 20:21] LABS: ALBUMIN 1.6 g/dL (3.4-5.0); BILIRUBIN,TOTAL 0.4 mg/dL (0.1-1.0); TOTAL PROTEIN, SERUM 5.8 g/dL (6.4-8.2)
[2017-01-05 20:23] LABS: BILIRUBIN,DIRECT 0.2 mg/dL (0.00-0.20)
[2017-01-05] MEDS ORDERED: SODIUM CHLORIDE 0.9% 10 ML ONE (20:41)
[2017-01-05] MEDS ORDERED: BACITRACIN 50,000 UNITS/VIAL ONE (20:41)
[2017-01-05 20:52] LABS: GLUCOSE COMMENT 1 Received Meds; GLUCOSE,POINT OF CARE 176 MG/DL (70-110)
[2017-01-05] MEDS ORDERED: RINGERS SOLUTION,LACTATED 1,000 ML IV ONE (20:57)
[2017-01-05 21:07] LABS: GLUCOSE,POINT OF CARE 322 MG/DL (70-110)
[2017-01-05] MEDS: BACITRACIN 50,000 UNITS/VIAL ONE ×2 (21:21→21:35)
[2017-01-05] MEDS: FLUCONAZOLE 400 MG/NACL ISOOSM 200 ML IV SCH (23:21)
[2017-01-05] MEDS: IMIPENEM/CILASTATIN SODIUM 1,000 MG in SODIUM CHLORIDE 0.9% 250 ML IV SCH (23:21)
[2017-01-05] MEDS: OXYGEN THERAPY IH SCH (23:23)
[2017-01-06] MEDS ORDERED: MIDAZOLAM HCL 2 MG/2 ML VIAL IVP ONE ×2 (02:01→12:34)
[2017-01-06] MEDS ORDERED: FentaNYL CITRATE-PF 100 MCG/2 ML VIAL IVP ONE ×2 (02:01→12:34)
[2017-01-06] MEDS ORDERED: 0.9% SODIUM CHLORIDE 5 ML NEB SOLUTION NEB ONE ×4 (02:03→19:27)
[2017-01-06] MEDS: ALBUTEROL SULFATE 2.5 MG/0.5 ML NEB SOLUTION NEB SCH ×4 (02:21→19:56)
[2017-01-06] MEDS: IMIPENEM/CILASTATIN SODIUM 1,000 MG in SODIUM CHLORIDE 0.9% 250 ML IV SCH ×4 (02:25→21:07)
[2017-01-06 04:22] LABS: GLUCOSE,POINT OF CARE 306 MG/DL (70-110)
[2017-01-06 05:16] VITALS: BP 149/76
[2017-01-06] MEDS: GlipiZIDE 5 MG TABLET PO SCH ×2 (05:55→17:39)
[2017-01-06 06:51] LABS: HEMATOCRIT 26.6 % (41-53); HEMOGLOBIN 8.8 g/dL (13.5-17.5); MEAN CORPUSCULAR HEMOGLOBIN 29.3 pg (26.0-34.0); MEAN CORPUSCULAR VOLUME 89 fL (80-100); PLATELET COUNT (AUTO) 262 K/uL (150-450); RED BLOOD CELL COUNT(AUTO) 2.99 MIL/uL (4.50-5.90); WHITE BLOOD COUNT (AUTO) 12.7 K/uL (4.5-11.0)
[2017-01-06 07:03] LABS: ANION GAP 9 mmol/L (8-16); CALCIUM, TOTAL 7.5 mg/dL (8.8-10.5); CARBON DIOXIDE 22 mmol/L (22-29); CHLORIDE 104 mmol/L (98-107); CREATININE 0.97 mg/dL (0.60-1.30); GLOMERULAR FILTR. RATE CALC > 60 mL/min (>60); POTASSIUM 4.7 mmol/L (3.5-5.1); SODIUM SERUM 135 mmol/L (136-145); UREA NITROGEN, BLOOD 14 mg/dL (7-18)
[2017-01-06 07:09] VITALS: BP 150/60
[2017-01-06 07:37] LABS: GLUCOSE,POINT OF CARE 281 MG/DL (70-110)
[2017-01-06] MEDS: OXYGEN THERAPY IH SCH ×2 (08:00→21:08)
[2017-01-06] MEDS: VANCOMYCIN HCL 1.25 GM in DEXTROSE 5%-WATER 250 ML IV SCH ×2 (08:28→21:08)
[2017-01-06] MEDS: INSULIN DETEMIR 100 UNITS/ML SQ SCH ×2 (08:28→21:14)
[2017-01-06] MEDS: PANTOPRAZOLE SODIUM 40 MG/VIAL IVP SCH ×2 (08:34→21:09)
[2017-01-06 08:48] LABS: GLUCOSE,POINT OF CARE 320 MG/DL (70-110)
[2017-01-06 08:56] LABS: BAND NEUTROPHILS % (MANUAL) 4 % (1-5); LYMPHOCYTES % (MANUAL) 2 % (22-44); TOTAL CELLS COUNTED 100
[2017-01-06] MEDS: AmLODIPine BESYLATE 5 MG TABLET PO SCH ×2 (09:00→14:06)
[2017-01-06] MEDS: MULTIVITAMINS WITH MINERALS, THERAPEUTIC TABLET PO SCH ×2 (09:00→14:08)
[2017-01-06] MEDS: METOPROLOL TARTRATE 50 MG TABLET PO SCH ×3 (09:00→21:10)
[2017-01-06] MEDS: TAMSULOSIN HCL 0.4 MG CAPSULE PO SCH ×3 (09:00→21:10)
[2017-01-06] MEDS: CHOLECALCIFEROL (VIT D3) 1,000 UNITS TABLET PO SCH ×2 (09:00→14:06)
[2017-01-06 11:35] VITALS: BP 174/61
[2017-01-06] MEDS: INSULIN ASPART 100 UNITS/ML SQ PRN ×3 (12:05→21:06)
[2017-01-06] MEDS ORDERED: MIDAZOLAM HCL 2 MG/2 ML VIAL ONE (12:22)
[2017-01-06] MEDS ORDERED: FentaNYL CITRATE-PF 100 MCG/2 ML VIAL ONE (12:22)
[2017-01-06 14:52] LABS: GLUCOSE,POINT OF CARE 336 MG/DL (70-110)
[2017-01-06] MEDS: MORPHINE SULFATE 2 MG/ML SYRINGE IVP PRN (15:36)
[2017-01-06 15:38] VITALS: BP 140/92
[2017-01-06 15:58] VITALS: BP 142/77
[2017-01-06] MEDS ORDERED: INSULIN ASPART 100 UNITS/ML SQ ONE (17:30)
[2017-01-06 17:44] LABS: APPEARANCE,URINE CLEAR (CLEAR); GLUCOSE, URINE (UA) >=1000 mg/dL (NEGATIVE); KETONES,URINE NEGATIVE (NEGATIVE); LEUKOCYTE ESTERASE ,URINE NEGATIVE (NEGATIVE); OCCULT BLOOD,URINE LARGE (NEGATIVE); PH,URINE 6.5 (5.0-8.0); PROTEIN,URINE SEE CONFIRM (NEGATIVE)
[2017-01-06 18:26] LABS: SULFOSALICYLIC ACID,URINE 1+ (Negative)
[2017-01-06 18:29] LABS: RBC,URINE 51-100 /HPF (0-2)
[2017-01-06 19:15] VITALS: BP 141/77
[2017-01-06 20:02] LABS: GLUCOSE COMMENT 1 Received Meds; GLUCOSE,POINT OF CARE 400 MG/DL (70-110)
[2017-01-06] MEDS ORDERED: SODIUM CHLORIDE 0.9% 500 ML IV ONE ×2 (21:42)
[2017-01-06 21:51] LABS: GLUCOSE COMMENT 1 Received Meds; GLUCOSE,POINT OF CARE 383 MG/DL (70-110)
[2017-01-07] VITALS (15 sets, daily range): BP systolic 126–191; BP diastolic 73–95
[2017-01-07] MEDS ORDERED: 0.9% SODIUM CHLORIDE 5 ML NEB SOLUTION NEB ONE ×3 (02:17→19:26)
[2017-01-07] MEDS: ALBUTEROL SULFATE 2.5 MG/0.5 ML NEB SOLUTION NEB SCH ×4 (02:31→19:28)
[2017-01-07] MEDS: IMIPENEM/CILASTATIN SODIUM 1,000 MG in SODIUM CHLORIDE 0.9% 250 ML IV SCH ×4 (02:56→21:22)
[2017-01-07] MEDS: ACETAMINOPHEN 325 MG TABLET PO PRN (04:52)
[2017-01-07] MEDS: GlipiZIDE 5 MG TABLET PO SCH ×2 (05:36→16:43)
[2017-01-07 05:37] LABS: GLUCOSE,POINT OF CARE 287 MG/DL (70-110)
[2017-01-07 06:34] LABS: EOSINOPHILS % (AUTO) 0.3 % (1.0-6.0); HEMATOCRIT 26.1 % (41-53); HEMOGLOBIN 8.5 g/dL (13.5-17.5); LYMPHOCYTES # (AUTO) 1.1 K/uL (1.0-4.8); LYMPHOCYTES % (AUTO) 8.9 % (22.0-44.0); MEAN CORPUSCULAR HEMOGLOBIN 28.9 pg (26.0-34.0); MEAN CORPUSCULAR HGB CONC 32.4 G/dL (31.0-37.0); MEAN CORPUSCULAR VOLUME 89 fL (80-100); MONOCYTES # (AUTO) 0.5 K/uL (0.1-1.0); MONOCYTES % (AUTO) 3.9 % (2.0-9.0); NEUTROPHILS # (AUTO) 10.8 K/uL (1.8-7.7); PLATELET COUNT (AUTO) 306 K/uL (150-450); RED BLOOD CELL COUNT(AUTO) 2.93 MIL/uL (4.50-5.90); RED CELL DISTRIBUTION WIDTH 14.7 % (11.5-14.5); WHITE BLOOD COUNT (AUTO) 12.5 K/uL (4.5-11.0)
[2017-01-07 06:40] LABS: ANION GAP 11 mmol/L (8-16); CALCIUM, TOTAL 7.5 mg/dL (8.8-10.5); CARBON DIOXIDE 22 mmol/L (22-29); CHLORIDE 104 mmol/L (98-107); CREATININE 1.15 mg/dL (0.60-1.30); GLOMERULAR FILTR. RATE CALC > 60 mL/min (>60); SODIUM SERUM 137 mmol/L (136-145); UREA NITROGEN, BLOOD 21 mg/dL (7-18)
[2017-01-07 07:10] LABS: NEUTROPHILS % (AUTO) 86.9 % (40.0-70.0)
[2017-01-07] MEDS: PANTOPRAZOLE SODIUM 40 MG/VIAL IVP SCH ×2 (08:26→21:23)
[2017-01-07] MEDS: OXYGEN THERAPY IH SCH ×2 (08:26→21:23)
[2017-01-07] MEDS: TAMSULOSIN HCL 0.4 MG CAPSULE PO SCH ×2 (08:26→21:23)
[2017-01-07] MEDS: VANCOMYCIN HCL 1.25 GM in DEXTROSE 5%-WATER 250 ML IV SCH ×2 (08:26→21:22)
[2017-01-07] MEDS ORDERED: MIDAZOLAM HCL 2 MG/2 ML VIAL IVP ONE (08:30)
[2017-01-07] MEDS ORDERED: FentaNYL CITRATE-PF 100 MCG/2 ML VIAL IVP ONE (08:30)
[2017-01-07] MEDS: INSULIN DETEMIR 100 UNITS/ML SQ SCH ×2 (08:31→21:25)
[2017-01-07] MEDS: METOPROLOL TARTRATE 50 MG TABLET PO SCH ×2 (09:00→21:23)
[2017-01-07] MEDS ORDERED: HEPARIN SODIUM 1000 UNITS/NS 1,000 ML ONE (10:38)
[2017-01-07] MEDS ORDERED: SODIUM BICARBONATE 50 MEQ/50 ML VIAL ONE (10:38)
[2017-01-07] MEDS ORDERED: LIDOCAINE HCL/PF 1% 30 ML VIAL ONE (10:38)
[2017-01-07] MEDS ORDERED: IOHEXOL 300 MG/ML 150 ML VIAL ONE ×2 (10:38→11:36)
[2017-01-07] MEDS ORDERED: VERAPAMIL HCL 2.5 MG/ML 2 ML VIAL ONE (11:14)
[2017-01-07] MEDS ORDERED: NITROGLYCERIN 50 MG/D5% WATER 250 ML ONE (11:14)
[2017-01-07] MEDS ORDERED: LIDOCAINE 1% 30 ML/SOD BICARB 8.4% 4 ML SQ ONE (11:30)
[2017-01-07] MEDS ORDERED: IOHEXOL 300 MG/ML 150 ML VIAL IARTER ONE ×2 (11:30→12:30)
[2017-01-07] MEDS ORDERED: SODIUM CHLORIDE 0.9% 500 ML IV ONE (11:30)
[2017-01-07] MEDS ORDERED: HEPARIN SODIUM 2,000 UNITS in HEPARIN SODIUM 1000 UNITS/NS 1,000 ML IARTER ONE (11:30)
[2017-01-07] MEDS ORDERED: ASPIRIN 81 MG CHEWABLE TABLET ONE (11:53)
[2017-01-07] MEDS ORDERED: TICAGRELOR 90 MG TABLET ONE (11:53)
[2017-01-07] MEDS ORDERED: TICAGRELOR 90 MG TABLET PO ONE (12:00)
[2017-01-07] MEDS ORDERED: HEPARIN SODIUM,PORCINE 5,000 UNITS/ML VIAL IVP ONE ×2 (12:00)
[2017-01-07] MEDS ORDERED: ASPIRIN 325 MG TABLET PO ONE (12:00)
[2017-01-07] MEDS ORDERED: HEPARIN SODIUM 1000 UNITS/NS 500 ML ONE (12:03)
[2017-01-07] MEDS ORDERED: NITROGLYCERIN/D5W 50 MG/250 ML IV BOTTLE ICOR ONE (12:30)
[2017-01-07] MEDS ORDERED: VERAPAMIL HCL 2.5 MG/ML 2 ML VIAL ICOR ONE (12:30)
[2017-01-07] MEDS: OxyCODONE HCL/ACETAMINOPHEN 5-325 MG TABLET PO PRN (16:00)
[2017-01-07] MEDS ORDERED: SODIUM CHLORIDE 0.9% 250 ML IV ONE (16:00)
[2017-01-07] MEDS: INSULIN ASPART 100 UNITS/ML SQ PRN (18:58)
[2017-01-07] MEDS: ATORVASTATIN CALCIUM 40 MG TABLET PO SCH (21:00)
[2017-01-07 21:21] LABS: GLUCOSE,POINT OF CARE 255 MG/DL (70-110)
[2017-01-07] MEDS: FLUCONAZOLE 400 MG/NACL ISOOSM 200 ML IV SCH ×2 (21:22)
[2017-01-07] MEDS: TICAGRELOR 90 MG TABLET PO SCH (21:23)
[2017-01-07] MEDS: MORPHINE SULFATE 2 MG/ML SYRINGE IVP PRN (22:02)
[2017-01-08] VITALS: BP 172/77
[2017-01-08] MEDS: ALBUTEROL SULFATE 2.5 MG/0.5 ML NEB SOLUTION NEB SCH ×4 (02:00→20:46)
[2017-01-08] MEDS: IMIPENEM/CILASTATIN SODIUM 1,000 MG in SODIUM CHLORIDE 0.9% 250 ML IV SCH ×4 (03:50→21:10)
[2017-01-08 04:00] VITALS: BP 148/58
[2017-01-08] MEDS: GlipiZIDE 5 MG TABLET PO SCH ×2 (06:10→17:00)
[2017-01-08] MEDS: INSULIN ASPART 100 UNITS/ML SQ PRN ×3 (06:11→21:13)
[2017-01-08] MEDS: MORPHINE SULFATE 2 MG/ML SYRINGE IVP PRN ×2 (06:11→14:43)
[2017-01-08] MEDS ORDERED: 0.9% SODIUM CHLORIDE 5 ML NEB SOLUTION NEB ONE ×3 (07:19→19:18)
[2017-01-08 07:29] LABS: BASOPHILS % (AUTO) 0.2 % (0.0-2.0); EOSINOPHILS % (AUTO) 1.8 % (1.0-6.0); HEMATOCRIT 29.9 % (41-53); HEMOGLOBIN 9.7 g/dL (13.5-17.5); LYMPHOCYTES # (AUTO) 1.2 K/uL (1.0-4.8); MEAN CORPUSCULAR HEMOGLOBIN 28.5 pg (26.0-34.0); MEAN CORPUSCULAR HGB CONC 32.3 G/dL (31.0-37.0); MEAN CORPUSCULAR VOLUME 88 fL (80-100); MONOCYTES % (AUTO) 6.6 % (2.0-9.0); NEUTROPHILS # (AUTO) 12.5 K/uL (1.8-7.7); NEUTROPHILS % (AUTO) 83.4 % (40.0-70.0); PLATELET COUNT (AUTO) 350 K/uL (150-450); RED BLOOD CELL COUNT(AUTO) 3.39 MIL/uL (4.50-5.90); RED CELL DISTRIBUTION WIDTH 14.4 % (11.5-14.5); WHITE BLOOD COUNT (AUTO) 14.9 K/uL (4.5-11.0)
[2017-01-08 07:49] LABS: ANION GAP 9 mmol/L (8-16); CALCIUM, TOTAL 7.8 mg/dL (8.8-10.5); CARBON DIOXIDE 24 mmol/L (22-29); CHLORIDE 103 mmol/L (98-107); CREATININE 1.07 mg/dL (0.60-1.30); GLOMERULAR FILTR. RATE CALC > 60 mL/min (>60); SODIUM SERUM 136 mmol/L (136-145); UREA NITROGEN, BLOOD 16 mg/dL (7-18)
[2017-01-08 08:00] VITALS: BP 140/94
[2017-01-08] MEDS: OXYGEN THERAPY IH SCH ×2 (08:18→20:46)
[2017-01-08] MEDS: VANCOMYCIN HCL 1 GM/D5% WATER 200 ML IV SCH ×3 (08:20→23:36)
[2017-01-08] MEDS: METOPROLOL TARTRATE 50 MG TABLET PO SCH ×2 (08:21→21:09)
[2017-01-08] MEDS: TAMSULOSIN HCL 0.4 MG CAPSULE PO SCH ×2 (08:21→21:09)
[2017-01-08] MEDS: TICAGRELOR 90 MG TABLET PO SCH ×2 (08:21→21:10)
[2017-01-08] MEDS: ASPIRIN 81 MG CHEWABLE TABLET PO SCH (08:22)
[2017-01-08] MEDS: CHOLECALCIFEROL (VIT D3) 1,000 UNITS TABLET PO SCH (08:22)
[2017-01-08] MEDS: AmLODIPine BESYLATE 5 MG TABLET PO SCH (08:22)
[2017-01-08] MEDS: MULTIVITAMINS WITH MINERALS, THERAPEUTIC TABLET PO SCH (08:22)
[2017-01-08] MEDS: PANTOPRAZOLE SODIUM 40 MG/VIAL IVP SCH ×2 (08:23→21:10)
[2017-01-08] MEDS: INSULIN DETEMIR 100 UNITS/ML SQ SCH ×2 (08:25→21:13)
[2017-01-08 10:32] LABS: GLUCOSE,POINT OF CARE 238 MG/DL (70-110)
[2017-01-08 10:32] LABS: GLUCOSE COMMENT 1 Received Meds; GLUCOSE,POINT OF CARE 235 MG/DL (70-110)
[2017-01-08 10:32] LABS: GLUCOSE COMMENT 1 Received Meds; GLUCOSE,POINT OF CARE 296 MG/DL (70-110)
[2017-01-08 12:00] VITALS: BP 134/78
[2017-01-08 12:02] LABS: GLUCOSE COMMENT 1 Received Meds; GLUCOSE,POINT OF CARE 222 MG/DL (70-110)
[2017-01-08 16:00] VITALS: BP 146/76
[2017-01-08 17:47] LABS: GLUCOSE COMMENT 1 Received Meds; GLUCOSE,POINT OF CARE 171 MG/DL (70-110)
[2017-01-08] MEDS: FLUCONAZOLE 400 MG/NACL ISOOSM 200 ML IV SCH (21:10)
[2017-01-08 22:13] VITALS: BP 145/83
[2017-01-08] MEDS: ATORVASTATIN CALCIUM 40 MG TABLET PO SCH (22:24)
[2017-01-09] VITALS (7 sets, daily range): BP systolic 126–156; BP diastolic 66–93
[2017-01-09] MEDS: ALBUTEROL SULFATE 2.5 MG/0.5 ML NEB SOLUTION NEB SCH ×4 (02:00→21:39)
[2017-01-09] MEDS: IMIPENEM/CILASTATIN SODIUM 1,000 MG in SODIUM CHLORIDE 0.9% 250 ML IV SCH ×4 (02:09→21:48)
[2017-01-09] MEDS: GlipiZIDE 5 MG TABLET PO SCH ×2 (05:46→17:48)
[2017-01-09] MEDS: INSULIN ASPART 100 UNITS/ML SQ PRN ×4 (05:49→22:01)
[2017-01-09 06:36] LABS: BASOPHILS % (AUTO) 0.2 % (0.0-2.0); HEMATOCRIT 29.2 % (41-53); HEMOGLOBIN 9.3 g/dL (13.5-17.5); LYMPHOCYTES # (AUTO) 1.3 K/uL (1.0-4.8); MEAN CORPUSCULAR HEMOGLOBIN 28.3 pg (26.0-34.0); MEAN CORPUSCULAR HGB CONC 31.9 G/dL (31.0-37.0); MEAN CORPUSCULAR VOLUME 89 fL (80-100); MONOCYTES # (AUTO) 0.7 K/uL (0.1-1.0); MONOCYTES % (AUTO) 4.8 % (2.0-9.0); NEUTROPHILS # (AUTO) 12.1 K/uL (1.8-7.7); PLATELET COUNT (AUTO) 354 K/uL (150-450); RED BLOOD CELL COUNT(AUTO) 3.29 MIL/uL (4.50-5.90); RED CELL DISTRIBUTION WIDTH 14.8 % (11.5-14.5); WHITE BLOOD COUNT (AUTO) 14.2 K/uL (4.5-11.0)
[2017-01-09 06:59] LABS: ANION GAP 8 mmol/L (8-16); CALCIUM, TOTAL 8.1 mg/dL (8.8-10.5); CARBON DIOXIDE 26 mmol/L (22-29); CHLORIDE 104 mmol/L (98-107); CREATININE 0.93 mg/dL (0.60-1.30); GLOMERULAR FILTR. RATE CALC > 60 mL/min (>60); POTASSIUM 3.9 mmol/L (3.5-5.1); SODIUM SERUM 138 mmol/L (136-145); UREA NITROGEN, BLOOD 14 mg/dL (7-18)
[2017-01-09] MEDS ORDERED: 0.9% SODIUM CHLORIDE 5 ML NEB SOLUTION NEB ONE ×3 (07:15→21:38)
[2017-01-09] MEDS: OXYGEN THERAPY IH SCH ×2 (08:02→21:47)
[2017-01-09 08:08] LABS: GLUCOSE COMMENT 1 Received Meds; GLUCOSE,POINT OF CARE 214 MG/DL (70-110)
[2017-01-09] MEDS: VANCOMYCIN HCL 1 GM/D5% WATER 200 ML IV SCH ×2 (09:04→15:24)
[2017-01-09] MEDS: TAMSULOSIN HCL 0.4 MG CAPSULE PO SCH ×2 (09:04→21:47)
[2017-01-09] MEDS: PANTOPRAZOLE SODIUM 40 MG/VIAL IVP SCH ×2 (09:04→21:48)
[2017-01-09] MEDS: ASPIRIN 81 MG CHEWABLE TABLET PO SCH (09:05)
[2017-01-09] MEDS: CHOLECALCIFEROL (VIT D3) 1,000 UNITS TABLET PO SCH (09:05)
[2017-01-09] MEDS: AmLODIPine BESYLATE 5 MG TABLET PO SCH (09:05)
[2017-01-09] MEDS: INSULIN DETEMIR 100 UNITS/ML SQ SCH ×2 (09:19→22:01)
[2017-01-09] MEDS: METOPROLOL TARTRATE 50 MG TABLET PO SCH ×2 (09:29→21:47)
[2017-01-09] MEDS: TICAGRELOR 90 MG TABLET PO SCH ×2 (09:29→21:48)
[2017-01-09] MEDS: MULTIVITAMINS WITH MINERALS, THERAPEUTIC TABLET PO SCH (09:29)
[2017-01-09] MEDS: OxyCODONE HCL/ACETAMINOPHEN 5-325 MG TABLET PO PRN (15:23)
[2017-01-09] MEDS: ATORVASTATIN CALCIUM 40 MG TABLET PO SCH (21:47)
[2017-01-09] MEDS: FLUCONAZOLE 400 MG/NACL ISOOSM 200 ML IV SCH (21:49)
[2017-01-09] MEDS ORDERED: SODIUM CHLORIDE 0.9% 250 ML IV ONE (22:41)
[2017-01-10] MEDS: VANCOMYCIN HCL 1 GM/D5% WATER 200 ML IV SCH ×3 (00:21→16:27)
[2017-01-10] MEDS ORDERED: 0.9% SODIUM CHLORIDE 5 ML NEB SOLUTION NEB ONE ×5 (01:59→19:39)
[2017-01-10] MEDS: ALBUTEROL SULFATE 2.5 MG/0.5 ML NEB SOLUTION NEB SCH ×4 (02:00→19:55)
[2017-01-10] MEDS: IMIPENEM/CILASTATIN SODIUM 1,000 MG in SODIUM CHLORIDE 0.9% 250 ML IV SCH ×4 (02:22→20:44)
[2017-01-10 04:22] VITALS: BP 143/81
[2017-01-10] MEDS: GlipiZIDE 5 MG TABLET PO SCH ×2 (06:01→16:36)
[2017-01-10] MEDS: INSULIN ASPART 100 UNITS/ML SQ PRN ×4 (06:10→20:55)
[2017-01-10 07:12] LABS: BASOPHILS % (AUTO) 0.7 % (0.0-2.0); HEMATOCRIT 28.7 % (41-53); HEMOGLOBIN 9.3 g/dL (13.5-17.5); LYMPHOCYTES # (AUTO) 1.4 K/uL (1.0-4.8); LYMPHOCYTES % (AUTO) 9.3 % (22.0-44.0); MEAN CORPUSCULAR HEMOGLOBIN 28.6 pg (26.0-34.0); MEAN CORPUSCULAR HGB CONC 32.2 G/dL (31.0-37.0); MEAN CORPUSCULAR VOLUME 89 fL (80-100); MONOCYTES # (AUTO) 0.6 K/uL (0.1-1.0); NEUTROPHILS # (AUTO) 12.4 K/uL (1.8-7.7); PLATELET COUNT (AUTO) 338 K/uL (150-450); RED BLOOD CELL COUNT(AUTO) 3.24 MIL/uL (4.50-5.90); RED CELL DISTRIBUTION WIDTH 15.3 % (11.5-14.5); WHITE BLOOD COUNT (AUTO) 14.6 K/uL (4.5-11.0)
[2017-01-10 07:44] VITALS: BP 140/77
[2017-01-10 07:48] LABS: ANION GAP 7 mmol/L (8-16); CALCIUM, TOTAL 7.8 mg/dL (8.8-10.5); CARBON DIOXIDE 26 mmol/L (22-29); CHLORIDE 104 mmol/L (98-107); CREATININE 1.02 mg/dL (0.60-1.30); GLOMERULAR FILTR. RATE CALC > 60 mL/min (>60); SODIUM SERUM 137 mmol/L (136-145); UREA NITROGEN, BLOOD 14 mg/dL (7-18)
[2017-01-10] MEDS: METOPROLOL TARTRATE 50 MG TABLET PO SCH ×2 (08:19→20:45)
[2017-01-10] MEDS: PANTOPRAZOLE SODIUM 40 MG/VIAL IVP SCH ×2 (08:19→20:44)
[2017-01-10] MEDS: MULTIVITAMINS WITH MINERALS, THERAPEUTIC TABLET PO SCH (08:19)
[2017-01-10] MEDS: TICAGRELOR 90 MG TABLET PO SCH ×2 (08:19→20:44)
[2017-01-10] MEDS: CHOLECALCIFEROL (VIT D3) 1,000 UNITS TABLET PO SCH (08:19)
[2017-01-10] MEDS: AmLODIPine BESYLATE 5 MG TABLET PO SCH (08:20)
[2017-01-10] MEDS: TAMSULOSIN HCL 0.4 MG CAPSULE PO SCH ×2 (08:20→20:54)
[2017-01-10] MEDS: ASPIRIN 81 MG CHEWABLE TABLET PO SCH (08:20)
[2017-01-10] MEDS: OXYGEN THERAPY IH SCH ×2 (08:21→20:43)
[2017-01-10] MEDS: INSULIN DETEMIR 100 UNITS/ML SQ SCH ×2 (09:14→20:55)
[2017-01-10] MEDS ORDERED: SODIUM CL IRRIG SOLN BOTTLE 250 ML IRRIG ONE (10:02)
[2017-01-10] MEDS: OxyCODONE HCL/ACETAMINOPHEN 5-325 MG TABLET PO PRN (10:13)
[2017-01-10 15:42] VITALS: BP 127/81
[2017-01-10 20:12] VITALS: BP 146/86
[2017-01-10] MEDS: FLUCONAZOLE 400 MG/NACL ISOOSM 200 ML IV SCH (20:43)
[2017-01-10] MEDS: ATORVASTATIN CALCIUM 40 MG TABLET PO SCH (20:44)
[2017-01-10] MEDS ORDERED: SODIUM CHLORIDE 0.9% 250 ML IV ONE (22:12)
[2017-01-11 01:11] VITALS: BP 146/70
[2017-01-11] MEDS ORDERED: 0.9% SODIUM CHLORIDE 5 ML NEB SOLUTION NEB ONE ×2 (02:07→07:43)
[2017-01-11] MEDS: ALBUTEROL SULFATE 2.5 MG/0.5 ML NEB SOLUTION NEB SCH ×3 (02:09→14:00)
[2017-01-11] MEDS: IMIPENEM/CILASTATIN SODIUM 1,000 MG in SODIUM CHLORIDE 0.9% 250 ML IV SCH ×3 (02:16→15:42)
[2017-01-11 05:57] VITALS: BP 150/81
[2017-01-11] MEDS: GlipiZIDE 5 MG TABLET PO SCH (05:58)
[2017-01-11 06:48] LABS: GLUCOSE COMMENT 1 Received Meds; GLUCOSE,POINT OF CARE 196 MG/DL (70-110)
[2017-01-11 06:52] LABS: GLUCOSE,POINT OF CARE 296 MG/DL (70-110)
[2017-01-11 06:52] LABS: GLUCOSE COMMENT 1 Received Meds; GLUCOSE,POINT OF CARE 190 MG/DL (70-110)
[2017-01-11 07:04] VITALS: BP 136/66
[2017-01-11 07:12] LABS: GLUCOSE,POINT OF CARE 124 MG/DL (70-110)
[2017-01-11 07:12] LABS: GLUCOSE COMMENT 1 Received Meds; GLUCOSE,POINT OF CARE 213 MG/DL (70-110)
[2017-01-11 07:58] LABS: ANION GAP 8 mmol/L (8-16); CALCIUM, TOTAL 8.2 mg/dL (8.8-10.5); CARBON DIOXIDE 27 mmol/L (22-29); CHLORIDE 104 mmol/L (98-107); CREATININE 1.02 mg/dL (0.60-1.30); GLOMERULAR FILTR. RATE CALC > 60 mL/min (>60); POTASSIUM 4.3 mmol/L (3.5-5.1); SODIUM SERUM 139 mmol/L (136-145); UREA NITROGEN, BLOOD 11 mg/dL (7-18)
[2017-01-11] MEDS: MULTIVITAMINS WITH MINERALS, THERAPEUTIC TABLET PO SCH (08:16)
[2017-01-11] MEDS: AmLODIPine BESYLATE 5 MG TABLET PO SCH (08:16)
[2017-01-11] MEDS: PANTOPRAZOLE SODIUM 40 MG/VIAL IVP SCH (08:16)
[2017-01-11] MEDS: METOPROLOL TARTRATE 50 MG TABLET PO SCH (08:16)
[2017-01-11] MEDS: TAMSULOSIN HCL 0.4 MG CAPSULE PO SCH (08:16)
[2017-01-11] MEDS: TICAGRELOR 90 MG TABLET PO SCH (08:16)
[2017-01-11] MEDS: ASPIRIN 81 MG CHEWABLE TABLET PO SCH (08:16)
[2017-01-11] MEDS: CHOLECALCIFEROL (VIT D3) 1,000 UNITS TABLET PO SCH (08:16)
[2017-01-11] MEDS: INSULIN DETEMIR 100 UNITS/ML SQ SCH (08:18)
[2017-01-11] MEDS: OXYGEN THERAPY IH SCH (08:20)
[2017-01-11] MEDS: OxyCODONE HCL/ACETAMINOPHEN 5-325 MG TABLET PO PRN (08:23)
[2017-01-11 11:11] VITALS: BP 125/66
[2017-01-11] MEDS: INSULIN ASPART 100 UNITS/ML SQ PRN ×2 (12:03→19:04)
[2017-01-11 15:34] VITALS: BP 128/68
[2017-01-13 12:57] LABS: GLUCOSE COMMENT 1 Received Meds; GLUCOSE,POINT OF CARE 252 MG/DL (70-110)
[2017-01-13 12:57] LABS: GLUCOSE COMMENT 1 Received Meds; GLUCOSE,POINT OF CARE 229 MG/DL (70-110)
[2017-04-01] MEDS ORDERED: LIDOCAINE HCL/PF 2% 5 ML VIAL IM ONE (20:52)
[2017-04-01] MEDS ORDERED: PROPOFOL 1% 20 ML VIAL IVP ONE (20:52)
[2017-04-01] MEDS ORDERED: ONDANSETRON HCL 4 MG/2 ML VIAL IVP ONE (20:52)
[2017-04-01] MEDS ORDERED: DEXAMETHASONE SOD PHOS 4 MG/ML VIAL IVP ONE (20:52)
== END 2017-01-11 19:05 | DRG 853 ==
LOC: EMS 12:52 → 5S 16:11 → ICU 12-30 10:25 → 5N 12-31 15:30 → ICU 01-07 13:09 → 5S 01-08 21:37
PROVIDERS: ADMIT Hospitalist; ATTEND Hospitalist
PROC: 30233N1 Transfusion of Nonautologous Red Blood Cells into Peripheral Vein, Percutaneous Approach (ICD-10-PCS; 2016-12-28)
PROC: 0HBAXZZ Excision of Inguinal Skin, External Approach (ICD-10-PCS; 2016-12-29)
PROC: 0HB9XZZ Excision of Perineum Skin, External Approach (ICD-10-PCS; 2016-12-29)
PROC: 0DJ08ZZ Inspection of Upper Intestinal Tract, Via Natural or Artificial Opening Endoscopic (ICD-10-PCS; principal; 2016-12-29 07:15)
PROC: 0HBAXZZ Excision of Inguinal Skin, External Approach (ICD-10-PCS; 2016-12-31)
PROC: 0HB9XZZ Excision of Perineum Skin, External Approach (ICD-10-PCS; 2016-12-31)
PROC: 0VT90ZZ Resection of Right Testis, Open Approach (ICD-10-PCS; 2017-01-03)
PROC: 0WBMXZX Excision of Male Perineum, External Approach, Diagnostic (ICD-10-PCS; 2017-01-03)
PROC: 0VTB0ZZ Resection of Left Testis, Open Approach (ICD-10-PCS; 2017-01-05)
PROC: 02703DZ Dilation of Coronary Artery, One Artery with Intraluminal Device, Percutaneous Approach (ICD-10-PCS; 2017-01-07)
PROC: 4A023N7 Measurement of Cardiac Sampling and Pressure, Left Heart, Percutaneous Approach (ICD-10-PCS; 2017-01-07)
PROC: B211YZZ Fluoroscopy of Multiple Coronary Arteries using Other Contrast (ICD-10-PCS; 2017-01-07)
PROC: B215YZZ Fluoroscopy of Left Heart using Other Contrast (ICD-10-PCS; 2017-01-07)
PROC: B41FYZZ Fluoroscopy of Right Lower Extremity Arteries using Other Contrast (ICD-10-PCS; 2017-01-07)
PROC: 0T9B30Z Drainage of Bladder with Drainage Device, Percutaneous Approach (ICD-10-PCS; 2017-01-07)
DX: A41.9 Sepsis, unspecified organism (principal); E43 Unspecified severe protein-calorie malnutrition; N17.9 Acute kidney failure, unspecified; K57.92 Diverticulitis of intestine, part unspecified, without perforation or abscess without bleeding; K92.2 Gastrointestinal hemorrhage, unspecified; D62 Acute posthemorrhagic anemia; E87.1 Hypo-osmolality and hyponatremia; E87.2 Acidosis; I13.0 Hypertensive heart and chronic kidney disease with heart failure and stage 1 through stage 4 chronic kidney disease, or unspecified chronic kidney disease; L02.215 Cutaneous abscess of perineum; N50.89 Other specified disorders of the male genital organs; N49.3 Fournier gangrene; I25.10 Atherosclerotic heart disease of native coronary artery without angina pectoris; B96.20 Unspecified Escherichia coli [E. coli] as the cause of diseases classified elsewhere; D69.6 Thrombocytopenia, unspecified; E11.22 Type 2 diabetes mellitus with diabetic chronic kidney disease; N18.9 Chronic kidney disease, unspecified; E11.65 Type 2 diabetes mellitus with hyperglycemia; E86.0 Dehydration; I48.91 Unspecified atrial fibrillation; I50.9 Heart failure, unspecified; K20.9 Esophagitis, unspecified; K26.9 Duodenal ulcer, unspecified as acute or chronic, without hemorrhage or perforation; N40.1 Benign prostatic hyperplasia with lower urinary tract symptoms; N45.3 Epididymo-orchitis; N44.8 Other noninflammatory disorders of the testis; N48.22 Cellulitis of corpus cavernosum and penis; N49.2 Inflammatory disorders of scrotum; Z16.24 Resistance to multiple antibiotics
CPT/HCPCS: 74176; 74177; 75989; 76770; 76870; 82271; 82306; 82570; 82962; 83036; 83735; 84100; 84132; 84153; 84156; 84300; 84443; 84540; 85018; 86850; 86900; 86901; 86920; 87040; 87070; 87081; 87086; 87106; 87205; 88304; 88305; 92920; 92928; 93005; 93306; 93925; 94640; 96365; 96375; 99285; C9113; J0131; J0330; J0690; J0743; J1100; J1160; J1170; J1450; J1644; J1815; J1940; J1956; J2250; J2270; J2274; J2354; J2405; J2543; J2704; J2765; J3010; J3370; J3490; J7030; J7040; J7050; J7060; J7120; P9016; Q9967